=== PATIENT | female | born 1965 | race Caucasian/White ===

== ENCOUNTER 2017-12-03 22:44 | Inpatient (IN) | payer OTHER ==
[~2017-12-03] VITALS: Ht 154.9 cm; Wt 65.8 kg
--- NOTE | 2017-12-03 22:58 | ED PSYCHIATRIC COMPLAINT ---
History of Present Illness General Chief Complaint: ETOH/Drug Related Complaint Stated Complaint: PER "I THINK SHE OVERDOSING AND SI THOUGHT" Source: patient, family Exam Limitations: no limitations Vital Signs & Intake/Output Vital Signs & Intake/Output Vital Signs Date Time Temp Pulse Resp B/P B/P Pulse O2 O2 Flow FiO2 Mean Ox Delivery Rate 12/03 2304 98 Room Air 12/03 2257 96.8 64 18 110/57 98 Room Air Allergies Coded Allergies: No Known Allergies (12/03/17) Triage Nurses Notes Reviewed? yes Past History Travel History Traveled to [place] past 21 day No Medical History Cardiovascular: hyperlipidemia Psychiatric: anxiety, depression Psychosocial History What is your primary language Kenyan Tobacco Use: Never used ETOH Use: occasional use Illicit Drug Use: marijuana Review of Systems Review of Systems Constitutional: Reports: no symptoms. EENTM: Reports: no symptoms. Respiratory: Reports: no symptoms. Cardiovascular: Reports: no symptoms. GI: Reports: no symptoms. Genitourinary: Reports: no symptoms. Musculoskeletal: Reports: no symptoms. Skin: Reports: no symptoms. Neurological/Psychological: Reports: no symptoms. Hematologic/Endocrine: Reports: no symptoms. Immunologic/Allergic: Reports: no symptoms. All Other Systems: Reviewed and Negative Physical Exam Physical Exam General Appearance: well developed/nourished, mild distress Head: atraumatic Eyes: Bilateral: PERRL, EOMI. Ears, Nose, Throat: normal pharynx, normal ENT inspection, hearing grossly normal Neck: normal inspection, supple Respiratory: normal breath sounds Cardiovascular: regular rate/rhythm Gastrointestinal: soft, non-tender Extremities: normal range of motion Skin: intact, normal color, warm/dry Progress Plan of Care: Orders Procedure Date/time Status Regular Diet 12/04 B Active Continuous Observation Monitor 12/03 2256 Active URINE DRUG SCREEN FOR ER ONLY 12/03 2256 Active ETHANOL 12/03 2256 Active COMPREHENSIVE METABOLIC PANEL 12/03 2256 Active CBC WITHOUT DIFFERENTIAL 12/03 2256 Active ED CRISIS PSYCH CONSULT 12/03 2256 Active Laboratory Tests 12/03/170: Sodium Pending, Potassium Pending, Chloride Pending, Carbon Dioxide Pending, Anion Gap Pending, BUN Pending, Creatinine Pending, BUN/Creatinine Ratio Pending , Glucose Pending, Calcium Pending, Total Bilirubin Pending, AST Pending, ALT Pending, Alkaline Phosphatase Pending, Total Protein Pending, Albumin Pending, Globulin Pending, Albumin/Globulin Ratio Pending, CBC w Diff Pending, WBC Pending, RBC Pending, Hgb Pending, Hct Pending, MCV Pending, MCH Pending, MCHC Pending, RDW Pending, Plt Count Pending, MPV Pending, Serum Alcohol Pending Departure Departure Condition: Stable Referrals: Howard IQBAL,Omar Goetz (PCP/Family) Departure Forms: Customer Survey General Discharge Information
[2017-12-03 23:10] LABS: ABSOLUTE BASOPHIL COUNT 0.1 /CUMM (0.0-0.2); ABSOLUTE EOSINOPHIL COUNT 0.1 /CUMM (0.0-0.7); ABSOLUTE GRANULOCYTE CT 3.8 /CUMM (1.4-6.5); ABSOLUTE LYMPH COUNT 2.1 /CUMM (1.2-3.4); ABSOLUTE MONOCYTE COUNT 0.4 /CUMM (0.10-0.60); EOSINOPHIL % 2.1 % (0-5); GRANULOCYTE % 58.2 % (42.2-75.2); HEMATOCRIT 40.9 % (37-47); MEAN CORPUSCULAR HGB 31.3 PG (27.0-31.0); MEAN CORPUSCULAR HGB CONC 33.9 G/DL (33.0-37.0); MEAN CORPUSCULAR VOLUME 92.3 FL (81.0-99.0); MEAN PLATELET VOLUME 7.2 FL (7.4-10.4); PLATELET COUNT 323 /CUMM (130-400); RBC DISTRIBUTION WIDTH 12.2 % (11.5-14.5); RED BLOOD CELL CT 4.43 /CUMM (4.20-5.40); WHITE BLOOD CELL COUNT 6.6 /CUMM (4.8-10.8)
--- NOTE | 2017-12-03 23:10 | ED PSYCHIATRIC COMPLAINT ---
See Addendum History of Present Illness General Chief Complaint: ETOH/Drug Related Complaint Stated Complaint: PER "I THINK SHE OVERDOSING AND SI THOUGHT" Source: patient, family Exam Limitations: clinical condition, intoxication Vital Signs & Intake/Output Vital Signs & Intake/Output Vital Signs Date Time Temp Pulse Resp B/P B/P Pulse O2 O2 Flow FiO2 Mean Ox Delivery Rate 12/04 0715 94.1 85 16 103/75 100 Room Air 12/04 0645 97.8 58 16 107/58 100 Nasal Cannula 12/04 0438 97.0 52 18 123/64 100 Nasal 2.0L Cannula 12/04 0229 96.7 54 16 115/53 99 Nasal 2.0L Cannula 12/03 2305 98 Room Air 12/03 2258 96.8 64 18 110/57 98 Room Air ED Intake and Output 12/04 0000 12/03 1200 Intake Total 0 Output Total Balance 0 Intake, Oral 0 Patient 145 lb Weight Weight Reported by Patient Measurement Method Allergies Coded Allergies: No Known Allergies (12/03/17) Triage Note: PT FROM HOME C/O OVERDOSE?? PT ARRIVED TO ED WITH FROM HOME, PT IS LETHARGIC AND THE HANDED A EMPTY BOTTLE OF ALPRAZOLAM TO THE SOLDER TECHNICIAN. PER PTS +SI THOUGHTS. PTS STATES TODAY AND YESTERDAY THAT SHE TOOK 18 PILLS OF ALPRAZOLAM 0.5MG PO. PTS WORDS ARE SLURRED STATING "I DONT KNOW I LOST TRACK" PTS STATES "SHE TOOK 10 MORE ABOUT 1 HR AGO" PT IS A&0X3. PTS STATES PT HAS FOR THE PAST WEEK PT HAS FELT DEPRESSED AND PLAN IS TO TAKE MANY PILLS SHE CAN AND NOT WAKE UP. PT WANDED AND CHANGED INTO BLUE SCRUBS. PTS STATES SHE WILL TAKE HER VALUABLES HOME. Triage Nurses Notes Reviewed? yes Onset: Gradual Duration: getting worse Timing: recent history Severity: severe Severity Numbers: 10 HPI: Patient is a 52-year-old female with a past medical history of depression and anxiety hypothyroidism, hyperlipidemia who presents emergency room with for concerns of worsening depression in the past 3 days where states that she has been taking an excessive amount of her 0.5 mg of alprazolam where she is taken per day approximately 10-15 Patient states that she just "does not want to wake up anymore" Denies any previous history of suicide attempt or plan Patient currently is not being evaluated by a psychiatrist She is compliant with her sertraline and Synthroid Patient does smoke marijuana for her anxiety denies any other illicit drugs Denies any alcohol use Denies any auditory or visual hallucinations Denies any homicidal ideation Patient has 2 teenage children (Tom Holder) Past History Travel History Traveled to [place] past 21 day No Medical History Any Pertinent Medical History? see below for history Cardiovascular: hyperlipidemia Psychiatric: anxiety, depression Endocrine: hypothyroidism Surgical History Surgical History: non-contributory Psychosocial History What is your primary language French Tobacco Use: Never used ETOH Use: occasional use Illicit Drug Use: marijuana Family History Hx Contributory? No (Tom Holder) Review of Systems Review of Systems Constitutional: Reports: no symptoms. EENTM: Reports: no symptoms. Respiratory: Reports: no symptoms. Cardiovascular: Reports: no symptoms. GI: Reports: no symptoms. Genitourinary: Reports: no symptoms. Musculoskeletal: Reports: no symptoms. Skin: Reports: no symptoms. Neurological/Psychological: Reports: see HPI, depressed. Hematologic/Endocrine: Reports: no symptoms. Immunologic/Allergic: Reports: no symptoms. All Other Systems: Reviewed and Negative (Tom Holder) Physical Exam Physical Exam General Appearance: sedated, lethargic Head: atraumatic Eyes: Bilateral: normal appearance, PERRL, EOMI. Ears, Nose, Throat: normal pharynx, normal ENT inspection Neck: normal inspection Respiratory: normal breath sounds, no respiratory distress Cardiovascular: regular rate/rhythm Gastrointestinal: normal bowel sounds, non-tender Neurological/Psychiatric: awake, alert, calm, flat, oriented x 3 Appearance/Memory/Insight: denies illness, disheveled Behavoir/Eye Contact/Speech: cooperative, normal speech, good eye contact Thoughts/Hallucinations: normal thought pattern, no apparent hallucination Skin: intact, normal color SAD PERSONS SAD PERSONS Response Value Age <19 or >45 years? yes 1 Depression/Hopelessness? yes 2 Excessive Ethanol/Drug Use? yes 1 Organized/Serious Attempt yes 2 Social Support? has support 0 Stated Future Intent? yes 2 Total 8 SAD PERSONS Done? yes (Tom Holder) Progress Differential Diagnosis: drug intoxication, drug overdose, drug withdrawal, electrolyte abnormality, encephalitis, hypoglycemia, hypothyroidism, IC hem/mass /tumor, meningitis Plan of Care: Orders Procedure Date/time Status Regular Diet 12/04 B Active Admit to inpatient psych 12/04 0950 Active Add-on Test (ER Only) 12/03 2335 Active Add-on Test (ER Only) 12/03 2310 Active ACETOMINOPHEN 12/03 2299 Complete THYROID STIMULATING HORMONE 12/03 2299 Complete THYROXINE 12/03 2299 Complete SALICYLATE 12/03 2299 Complete Continuous Observation Monitor 12/03 2256 Active URINE DRUG SCREEN FOR ER ONLY 12/03 2256 Complete ETHANOL 12/03 2256 Complete COMPREHENSIVE METABOLIC PANEL 12/03 2256 Complete CBC WITHOUT DIFFERENTIAL 12/03 2256 Complete ED CRISIS PSYCH CONSULT 12/03 2256 Active Laboratory Tests 12/04/17 0138: Urine Opiates Screen < 100, Methadone Screen < 40, Barbiturate Screen < 60, Ur Phencyclidine Scrn < 6.00, Amphetamines Screen < 100, U Benzodiazepines Scrn > 800 H, Urine Cocaine Screen < 50, Urine Cannabis Screen > 80.00 H 12/03/172299: Anion Gap 12, Estimated GFR > 60, BUN/Creatinine Ratio 12.9, Glucose 113 H, Calcium 9.3, Total Bilirubin 1.1, AST 15, ALT 24, Alkaline Phosphatase 60, Total Protein 7.2, Albumin 4.0, Globulin 3.2, Albumin/Globulin Ratio 1.3, TSH 1.350, Thyroxine (T4) 9.2, CBC w Diff NO MAN DIFF REQ, RBC 4.43, MCV 92.3, MCH 31.3 H, MCHC 33.9, RDW 12.2, MPV 7.2 L, Gran % 58.2, Lymphocytes % 32.5, Monocytes % 6.2, Eosinophils % 2.1, Basophils % 1.0, Absolute Granulocytes 3.8, Absolute Lymphocytes 2.1, Absolute Monocytes 0.4, Absolute Eosinophils 0.1, Absolute Basophils 0.1, Salicylates < 1.0, Acetaminophen < 10.0 L, Serum Alcohol < 10.0 Patient's initial presentation was noted to be intoxicated most likely benzodiazepines, knit goods cutter hand placed patient was given supplemental oxygen Patient will require crisis evaluation SITTER ORDERED BLOOD Work AND UDS still pending discussed handoff with Dr. Tate Hand-Off Endorsed To: Lea IQBAL,Russ Smith Endorsed Time: 99 Pending: consult (Tom Holder) Hand-Off Endorsed To: Alex IQBAL,Grupo Juan Endorsed Time: 0700 Pending: consult (Lea IQBAL,Russ Smith) Departure Departure Disposition: STILL A PATIENT Condition: Guarded Clinical Impression Primary Impression: Depression Secondary Impressions: Suicide attempt Referrals: Howard IQBAL,Omar Goetz (PCP/Family) Departure Forms: Customer Survey General Discharge Information (Tom Holder) PA/PULP PLANT SUPERVISOR Co-Sign Statement Statement: ED Attending supervision documentation- [] I saw and evaluated the patient. I have also reviewed all the pertinent lab results and diagnostic results. I agree with the findings and the plan of care as documented in the PA's/PULP PLANT SUPERVISOR's documentation. [x] I have reviewed the ED Record and agree with the PA's/PULP PLANT SUPERVISOR's documentation. [] Additions or exceptions (if any) to the PAs/PULP PLANT SUPERVISOR's note and plan are summarized below: [] (Lea IQBAL,Russ Smith) Psych Admission Note Psychiatric Admission: I have seen and evaluated OSVALDO FLORES. I have also reviewed all the pertinent lab results and diagnostic results. OSVALDO FLORES will be admitted to our inpatient Psychiatric unit for treatment and care. (Alex IQBAL,Grupo Juan) Critical Care Note Critical Care Note Critical Care Time: 75-104 min (Tom Holder)
[2017-12-04] VITALS (10 sets, daily range): BP systolic 98–122; BP diastolic 63–88
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
--- NOTE | 2017-12-04 12:36 | CPS PROVIDER INIT ASMT PSYCH ---
Psychiatric Admission Auto Clutch Specialist's Note Reviewed: Yes Patient Seen and Examined: Yes Identifying Information: 52yoF Chief Complaint: "my life sucks" Reaction to Hospitalization: too early to assess History of Present Illness Onset of Illness: years ago Circumstances Leading to Admission: misuse of medications Problem(s) Justifying Need for Admission: worsening depression and passive SI Other HPI: Pt notes that she has been struggling with depression and anxiety for decades. She has been rx xanax which she has been using more and more up to 25 0.5mg xanax tablets daily escalating over the past week. She finds her job to be stressful. The notes that over the past few weeks has been wanting to "go to sleep and not wake up." Pt denies more active SI. Denies manic, psychotic or TRS. Past Psychiatric History Past Diagnosis(es)- if any: Major depressive disorder Panic disorder Generalized anxiety disorder Past Precipitating Factors- if any: worsening depression - Include inpatient and outpatient treatment Treatment History: Dx: Anxiety in late No hospitalizations No SA Meds by PMD, only ever taken sertraline up to 50mg and xanax Did psychotherapy for 2 years History of Suicide Attempts or Gestures Denied Substance Abuse History: Tobacco: denied Alcohol: denied Illicits: mj daily, 2 bowls, could not quantify amount Abusing her rx for xanax, may also be taking husbands rx Allergies: Coded Allergies: No Known Allergies (12/03/17) Home Med List: see H&P - Include any medical condition(s) that may - impact the patient's recovery/remission Past Medical History: See H&P Past History Medical History Cardiovascular: hyperlipidemia Psychiatric: anxiety, depression Endocrine: hypothyroidism Isolation History: Standard Surgical History Surgical History: none Psychiatric Family/Social Hx Family History Psychiatric Illness: mother with anxiety, pt thinks she is "manic depressive", uncle with psych "issues" Substance Use: denied Suicides: mother attempted suicide innumerable times Social History Living Situation: with and two children Significant Relationships (family/friends): Education: HS grad 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 - #1 Recognizing dangerous situations. - #2 Coping Skills. - #3 Basic information about quitting. Status of Tobacco Cessation Counseling: Not Applicable Cessation Med Status Not Applicable Alcohol Screening - ETOH screen POS if BAL >=80 or Audit-C>= M4/F3 Audit-C Score from Diag Assess: 0 Blood Alcohol Level: Laboratory Tests 12/03 2300 Toxicology Serum Alcohol (<10 MG/DL) < 10.0 Alcohol Use Screening Results: Neg per Audit C &/or BAL - If ETOH counseling indicated - the following topics are required. - #1 Express concern about the patient's - drinking at unhealthy levels, include informing - of national norms for moderate drinking: - men <= 14 drinks/week, max 4 drinks/occasion - women <= 7 drinks/week, max 3 drinks/occasion - #2 Providing feedback, including linking alcohol to - negative physical effects (liver injury, hypertension) - negative emotional effects (relationship problems and - depression) - negative occupational consequences (reduced work - performance) - #3 Advising the patient to abstain from alcohol or - to drink below national norms for moderate drinking - (as listed above). Status of ETOH Use Counseling: N/A B/C NO ETOH Use Metabolic Screening - Screen if on a Neuroleptic Medication - Metabolic screening should include: - Blood Pressure, BMI, Glucose or Hgb A1c, & a - Lipid profile from within the past 365 days. Metabolic Screening Laboratory Tests 12/04 12/03 0138 2300 Chemistry Sodium (137 - 145 mmol/L) 140 Potassium (3.5 - 5.1 mmol/L) 3.5 Chloride (98 - 107 mmol/L) 103 Carbon Dioxide (22 - 30 mmol/L) 25 Anion Gap (5 - 16) 12 BUN (7 - 17 mg/dL) 9 Creatinine (0.5 - 1.0 mg/dL) 0.7 Estimated GFR (>60 ml/min) > 60 BUN/Creatinine Ratio (7 - 25 %) 12.9 Glucose (65 - 99 mg/dL) 113 H Calcium (8.4 - 10.2 mg/dL) 9.3 Total Bilirubin (0.2 - 1.3 mg/dL) 1.1 AST (14 - 36 U/L) 15 ALT (9 - 52 U/L) 24 Alkaline Phosphatase (<127 U/L) 60 Total Protein (6.3 - 8.2 g/dL) 7.2 Albumin (3.5 - 5.0 g/dL) 4.0 Globulin (1.9 - 4.2 gm/dL) 3.2 Albumin/Globulin Ratio (1.1 - 2.2 %) 1.3 TSH (0.270 - 4.200 uIU/mL) 1.350 Thyroxine (T4) (4.5 - 10.9 ug/dL) 9.2 Hematology CBC w Diff NO MAN DIFF REQ WBC (4.8 - 10.8 /CUMM) 6.6 RBC (4.20 - 5.40 /CUMM) 4.43 Hgb (12.0 - 16.0 G/DL) 13.9 Hct (37 - 47 %) 40.9 MCV (81.0 - 99.0 FL) 92.3 MCH (27.0 - 31.0 PG) 31.3 H MCHC (33.0 - 37.0 G/DL) 33.9 RDW (11.5 - 14.5 %) 12.2 Plt Count (130 - 400 /CUMM) 323 MPV (7.4 - 10.4 FL) 7.2 L Gran % (42.2 - 75.2 %) 58.2 Lymphocytes % (20.5 - 51.1 %) 32.5 Monocytes % (1.7 - 9.3 %) 6.2 Eosinophils % (0 - 5 %) 2.1 Basophils % (0.0 - 2.0 %) 1.0 Absolute Granulocytes (1.4 - 6.5 /CUMM) 3.8 Absolute Lymphocytes (1.2 - 3.4 /CUMM) 2.1 Absolute Monocytes (0.10 - 0.60 /CUMM) 0.4 Absolute Eosinophils (0.0 - 0.7 /CUMM) 0.1 Absolute Basophils (0.0 - 0.2 /CUMM) 0.1 Toxicology Salicylates (0 - 20.0 mg/dL) < 1.0 Urine Opiates Screen (>2000 NG/ML) < 100 Methadone Screen (>300 NG/ML) < 40 Acetaminophen (10.0 - 30.0 ug/mL) < 10.0 L Barbiturate Screen (>200 NG/ML) < 60 Ur Phencyclidine Scrn (>25 NG/ML) < 6.00 Amphetamines Screen (>1000 NG/ML) < 100 U Benzodiazepines Scrn (>200 NG/ML) > 800 H Urine Cocaine Screen (>300 NG/ML) < 50 Urine Cannabis Screen (>50 NG/ML) > 80.00 H Serum Alcohol (<10 MG/DL) < 10.0 Exam and Plan Mental Status Examination Ambulation Status: freely Appearance: older than stated age Attitude towards examiner: cooperative but evasive and defensive Psychomotor activity: no retardation or agitation noted Behavior: cooperative Quality of speech: nl r/r/p/v Affect: irritable, constricted, appropriate, non-labile Mood: "bad" Suicidal Ideation: passive SI + denies active Homicidal Ideation: denied Hallucinations: denied Paranoid/Delusional Material: denied Difficulties with thought organization: none noted Insight: poor Judgment: poor Orientation: a/o x4 Cognition: grossly intact Memory Function: grossly intact Estimate of intellectual functioning: average Assets/Strengths Patient Identified Assets/Strengths: able to communicate family support Impression/Plan Impression and Plan: Pt with long-standing hx of anxiety and depression previously only treated with BDZ. - Include all active medical diagnosis that require tx DSM 5 Diagnosis(es): Generalized anxiety disorder MDD Sedative/hypnotic abuse - Initial Tx Plan for Active Psych & Medical Conditions Treatment Plan: - Detox from BDZ, CIWA started with standing and PRN ativan - Increase sertraline - Need collateral from PMD - Factors that would help patient function - in a less restrictive setting. Factors: substance use
[2017-12-04] MEDS ORDERED: SYNTHROID88 MCG PO (13:27)
[2017-12-04] MEDS ORDERED: SERTRALINE HCL50 MG PO (13:28)
[2017-12-04] MEDS ORDERED: ALPRAZOLAM0.5 M4 PO (13:28)
--- NOTE | 2017-12-04 14:35 | Cons- Medical ---
General Information and HPI Consulting Request Date of Consult: 12/04/17 Requested By: Russ Eric MD Reason for Consult: Medical H & P Source of Information: patient, old records Exam Limitations: no limitations History of Present Illness: 52-year-old female past medical history of hypothyroidism on Synthroid is here with depression and acute suicidal ideation. Patient is here after an intentional benzo overdose with suicidality. She denies any medical complaints. She denies nausea vomiting diarrhea, no chest pain, no shortness of breath and no other complaints. Allergies/Medications Allergies: Coded Allergies: No Known Allergies (12/03/17) Home Med List: Alprazolam 0.5 MG TABLET 1 TAB PO TIDPRN MENTAL HEALTH (Reported) Levothyroxine Sodium (Synthroid) 88 MCG TABLET 88 MCG PO DAILY HORMONE REPLACEMENT (Reported) Sertraline HCl 50 MG TABLET 1 TAB PO DAILY MENTAL HEALTH (Reported) Current Medications: Current Medications Sig/Edmund Start time Last Medication Dose Route Stop Time Status Admin Gabapentin 300 MG Q8P PRN 12/04 1030 AC PO Hydroxyzine HCl 50 MG Q6P PRN 12/04 1030 AC PO Lorazepam 0.5 MG ONCE 12/09 0000 AC PO 12/09 0001 Lorazepam 0.5 MG Q6H 12/08 0000 AC PO 12/08 1801 Lorazepam 0.5 MG ONCE ONE 12/07 1800 AC PO 12/07 1801 Lorazepam 1 MG Q6H 12/07 0000 AC PO 12/07 1201 Lorazepam 1.5 MG Q12H / 0600 AC PO 12/06 1801 Lorazepam 1 MG Q12H / 0000 AC PO 12/06 1201 Lorazepam 1.5 MG Q6 12/05 0600 AC PO 12/05 1801 Lorazepam 2 MG Q6 12/04 1200 AC PO 12/05 0001 Lorazepam 0 .STK-MED ONE 12/04 1056 DC PO Lorazepam 2 MG ONCE ONE 12/04 1030 DC 12/04 PO 12/04 1031 1109 Lorazepam 2 MG Q2P PRN 12/04 1030 AC PO Lorazepam 1 MG Q2P PRN 12/04 1030 AC PO Sertraline HCl 75 MG DAILY AC 12/05 0700 AC PO Trazodone HCl 50 MG AT BEDTIME NEED.. 12/04 1030 AC PO Review of Systems Review of Systems Constitutional: Denies: no symptoms, chills, diaphoresis, fever. Cardiovascular: Denies: no symptoms, chest pain, edema, orthopena. Respiratory: Denies: no symptoms, cough, hemoptysis, orthopnea. GI: Denies: no symptoms, abdominal pain, bloating, constipation. Genitourinary: Denies: no symptoms, discharge, dysuria, frequency. All Other Systems: Reviewed and Negative Past History Travel History Traveled to [place] past 21 day No Medical History Neurological: NONE EENT: NONE Cardiovascular: hyperlipidemia Respiratory: NONE Gastrointestinal: NONE Hepatic: NONE Renal: NONE Musculoskeletal: NONE Psychiatric: anxiety, depression Endocrine: hypothyroidism Cancer(s): NONE [employer]/Reproductive: miscarriage Surgical History Surgical History: non-contributory Psychosocial History Where Do You Live? Home Who Do You Live With? 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 She is with 2 children ages 15 and 12 and lives at home with them. She says other than her she's had no other surgeries. She is estranged from her parents and hence no family history is available. Exam & Diagnostic Data Last 24 Hrs of Vital Signs/I&O Vital Signs Date Time Temp Pulse Resp B/P B/P Pulse O2 O2 Flow FiO2 Mean Ox Delivery Rate 12/04 1224 98.0 76 117/88 12/04 1223 98.0 76 117/88 12/04 1033 82 16 112/74 99 Room Air 12/04 0715 94.1 85 16 103/75 100 Room Air 12/04 0645 97.8 58 16 107/58 100 Nasal Cannula 12/04 0438 97.0 52 18 123/64 100 Nasal 2.0L Cannula 12/04 0229 96.7 54 16 115/53 99 Nasal 2.0L Cannula 12/03 2305 98 Room Air 12/03 2258 96.8 64 18 110/57 98 Room Air Intake & Output 12/04 1600 12/04 0800 12/04 0000 Intake Total 0 Output Total Balance 0 Intake, Oral 0 Patient 65.771 kg 65.771 kg Weight Weight Reported by Patient Measurement Method Physical Exam General Appearance: well developed/nourished, no apparent distress, alert, awake Head: atraumatic, normal appearance Eyes: Bilateral: normal appearance, PERRL, EOMI. Ears, Nose, Throat: normal pharynx, normal ENT inspection, hearing grossly normal Neck: normal inspection, supple, full range of motion Respiratory: normal breath sounds, chest non-tender, no respiratory distress, quiet respiration Cardiovascular: regular rate/rhythm Gastrointestinal: normal bowel sounds, soft, non-tender, no organomegaly Back: normal inspection, normal range of motion Extremities: normal inspection, normal capillary refill, normal range of motion, no edema Neurologic/Psych: no motor/sensory deficits, awake, alert, oriented x 3, normal gait Skin: intact, normal color, warm/dry Other Physical Findings: Pt is alert and oriented 3, cranial nerves III-12 are grossly intact. Gross motor and sensory intact. Reflexes are 2+ and symmetric. No cerebellar signs and gait is normal. Last 24 Hrs of Labs/Myles: Laboratory Tests 12/04/17 0138: Urine Opiates Screen < 100, Methadone Screen < 40, Barbiturate Screen < 60, Ur Phencyclidine Scrn < 6.00, Amphetamines Screen < 100, U Benzodiazepines Scrn > 800 H, Urine Cocaine Screen < 50, Urine Cannabis Screen > 80.00 H 12/03/17 2300: Anion Gap 12, Estimated GFR > 60, BUN/Creatinine Ratio 12.9, Glucose 113 H, Calcium 9.3, Total Bilirubin 1.1, AST 15, ALT 24, Alkaline Phosphatase 60, Total Protein 7.2, Albumin 4.0, Globulin 3.2, Albumin/Globulin Ratio 1.3, TSH 1.350, Thyroxine (T4) 9.2, CBC w Diff NO MAN DIFF REQ, RBC 4.43, MCV 92.3, MCH 31.3 H, MCHC 33.9, RDW 12.2, MPV 7.2 L, Gran % 58.2, Lymphocytes % 32.5, Monocytes % 6.2, Eosinophils % 2.1, Basophils % 1.0, Absolute Granulocytes 3.8, Absolute Lymphocytes 2.1, Absolute Monocytes 0.4, Absolute Eosinophils 0.1, Absolute Basophils 0.1, Salicylates < 1.0, Acetaminophen < 10.0 L, Serum Alcohol < 10.0 Assessment/Plan Assessment/Plan 52-year-old female past medical history of hypothyroidism on Synthroid replacement therapy here with depression and suicidal ideation status post intentional overdose with benzos. Treatment of depressive symptoms as per psychiatry. We'll start patient's usual dose of levothyroxine at 88 g a day, given normal TSH. Counseled about marijuana cessation. She'll need outpatient follow-up with her PCP Dr. Lawrence on discharge. Problem List: 1. Depression 2. Suicide attempt Copies To: Omar Lawrence MD Consult Acknowledgment - Thank you for your consult request.
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
[2017-12-05] VITALS (9 sets, daily range): BP systolic 111–141; BP diastolic 53–94
--- NOTE | 2017-12-05 10:20 | CP SOUTH PROGRESS NOTE PSYCH ---
Psych (Inpt) Progress Note Progress Note Include the following elements, when applicable: Involvement in the active treatment of the patient with behavioral observations of the patient and the patient's response to the treatment. Review of the ongoing treatment process in the context of the treatment plan. Indication of how multi-disciplinary staff members are carrying out the treatment plan. Plans for future interventions and recommendations for revision of the treatment plan. Liaison with other physicians/providers. Progress Note: Pt notes that she "has been better." She notes continued sadness and depression. She has decided not to have her children visit nor will she call them. She was very tearful around this. She revealed the very difficult relationship with her . She notes she would have left him long ago but is not fiancially secure and she "is in it for the kids." She feels that he is "family" and more supportive than her biological family currently but is usually distant and not supportive. Very difficult interpersonal relationship. Denies SI or HI. Current Medications Sig/Edmund Start time Last Medication Dose Route Stop Time Status Admin Gabapentin 300 MG Q8P PRN 12/04 1030 AC PO Hydroxyzine HCl 50 MG Q6P PRN 12/04 1030 AC PO Levothyroxine Sodium 0.088 MG DAILY AC 12/04 1618 AC 12/05 PO 0713 Lorazepam 0.5 MG ONCE 12/09 0000 AC PO 12/09 0001 Lorazepam 0.5 MG Q6H 12/08 0000 AC PO 12/08 1801 Lorazepam 0.5 MG ONCE ONE 12/07 1800 AC PO 12/07 1801 Lorazepam 1 MG Q6H 12/07 0000 AC PO 12/07 1201 Lorazepam 1.5 MG Q12H 12/06 0600 AC PO 12/06 1801 Lorazepam 1 MG Q12H 12/06 0000 AC PO 12/06 1201 Lorazepam 1.5 MG Q6 12/05 0600 AC 12/05 PO 12/05 1801 0605 Lorazepam 2 MG Q6 12/04 1200 DC 12/04 PO 12/05 0001 1736 Lorazepam 0 .STK-MED ONE 12/04 1056 DC PO Lorazepam 2 MG ONCE ONE 12/04 1030 DC 12/04 PO 12/04 1031 1109 Lorazepam 2 MG Q2P PRN 12/04 1030 AC PO Lorazepam 1 MG Q2P PRN 12/04 1030 AC PO Sertraline HCl 75 MG DAILY AC 12/05 0700 AC 12/05 PO 0714 Trazodone HCl 50 MG AT BEDTIME NEED.. 12/04 1030 AC PO Laboratory Tests 12/04 12/03 0138 2300 Chemistry Sodium (137 - 145 mmol/L) 140 Potassium (3.5 - 5.1 mmol/L) 3.5 Chloride (98 - 107 mmol/L) 103 Carbon Dioxide (22 - 30 mmol/L) 25 Anion Gap (5 - 16) 12 BUN (7 - 17 mg/dL) 9 Creatinine (0.5 - 1.0 mg/dL) 0.7 Estimated GFR (>60 ml/min) > 60 BUN/Creatinine Ratio (7 - 25 %) 12.9 Glucose (65 - 99 mg/dL) 113 H Calcium (8.4 - 10.2 mg/dL) 9.3 Total Bilirubin (0.2 - 1.3 mg/dL) 1.1 AST (14 - 36 U/L) 15 ALT (9 - 52 U/L) 24 Alkaline Phosphatase (<127 U/L) 60 Total Protein (6.3 - 8.2 g/dL) 7.2 Albumin (3.5 - 5.0 g/dL) 4.0 Globulin (1.9 - 4.2 gm/dL) 3.2 Albumin/Globulin Ratio (1.1 - 2.2 %) 1.3 TSH (0.270 - 4.200 uIU/mL) 1.350 Thyroxine (T4) (4.5 - 10.9 ug/dL) 9.2 Hematology CBC w Diff NO MAN DIFF REQ WBC (4.8 - 10.8 /CUMM) 6.6 RBC (4.20 - 5.40 /CUMM) 4.43 Hgb (12.0 - 16.0 G/DL) 13.9 Hct (37 - 47 %) 40.9 MCV (81.0 - 99.0 FL) 92.3 MCH (27.0 - 31.0 PG) 31.3 H MCHC (33.0 - 37.0 G/DL) 33.9 RDW (11.5 - 14.5 %) 12.2 Plt Count (130 - 400 /CUMM) 323 MPV (7.4 - 10.4 FL) 7.2 L Gran % (42.2 - 75.2 %) 58.2 Lymphocytes % (20.5 - 51.1 %) 32.5 Monocytes % (1.7 - 9.3 %) 6.2 Eosinophils % (0 - 5 %) 2.1 Basophils % (0.0 - 2.0 %) 1.0 Absolute Granulocytes (1.4 - 6.5 /CUMM) 3.8 Absolute Lymphocytes (1.2 - 3.4 /CUMM) 2.1 Absolute Monocytes (0.10 - 0.60 /CUMM) 0.4 Absolute Eosinophils (0.0 - 0.7 /CUMM) 0.1 Absolute Basophils (0.0 - 0.2 /CUMM) 0.1 Toxicology Salicylates (0 - 20.0 mg/dL) < 1.0 Urine Opiates Screen (>2000 NG/ML) < 100 Methadone Screen (>300 NG/ML) < 40 Acetaminophen (10.0 - 30.0 ug/mL) < 10.0 L Barbiturate Screen (>200 NG/ML) < 60 Ur Phencyclidine Scrn (>25 NG/ML) < 6.00 Amphetamines Screen (>1000 NG/ML) < 100 U Benzodiazepines Scrn (>200 NG/ML) > 800 H Urine Cocaine Screen (>300 NG/ML) < 50 Urine Cannabis Screen (>50 NG/ML) > 80.00 H Serum Alcohol (<10 MG/DL) < 10.0 Vital Signs Date Time Temp Pulse Resp B/P B/P Pulse O2 O2 Flow FiO2 Mean Ox Delivery Rate 12/05 821 96.4 64 127/85 12/05 0820 96.4 64 127/85 12/05 0610 67 123/66 12/04 2350 72 98/73 12/04 2224 71 108/81 12/05 1999 97.7 73 119/77 12/04 1949 97.7 73 119/77 12/04 1814 75 114/74 12/04 1609 70 122/76 12/04 1554 70 122/76 12/04 1453 75 120/63 12/04 1224 98.0 76 117/88 12/04 1223 98.0 76 117/88 12/04 1033 82 16 112/74 99 Room Air MSE General appearance: fair hygiene and grooming; Attitude: cooperative; Eye contact: appropriate; Movement: no psychomotor agitation or slowing; Speech: nl fluency, nl rate/rhythm, nl volume, nl prosody; Mood: "been better" Affect: irritable, flat, appropriate, constricted, non-labile, congruent; Thought process: linear and goal-directed; Thought content: denied SI or HI, no paranoid ideation; Perception: denied hallucinations- auditory, visual, does not appear to be responding to internal stimuli; I/J: limited A/P: Pt with long-standing hx of anxiety and depression previously only treated with BDZ. - Continue current medications - Tolerating detox without difficulty - Encourage groups
[2017-12-06] VITALS (11 sets, daily range): BP systolic 107–129; BP diastolic 65–93
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
--- NOTE | 2017-12-06 16:12 | CP SOUTH PROGRESS NOTE PSYCH ---
Psych (Inpt) Progress Note Progress Note Include the following elements, when applicable: Involvement in the active treatment of the patient with behavioral observations of the patient and the patient's response to the treatment. Review of the ongoing treatment process in the context of the treatment plan. Indication of how multi-disciplinary staff members are carrying out the treatment plan. Plans for future interventions and recommendations for revision of the treatment plan. Liaison with other physicians/providers. Progress Note: Dr. Johnson's notes reviewed. Case discussed with nursing staff, who reports that the patient is here for depression and suicidal ideation. The patient overdosed with Xanax prior to admission. Appearing depressed and withdrawn. Denying suicidal ideation. Stays in bed a lot. We will reduce CIWA to every 4 hours. The patient is a 52-year-old white female who was admitted on 12/04/17. The patient apparently took successively greater doses of Xanax over the course of last week with suicidal intent. She reported job stress. Apparently there is some marital stress as well. Past psychiatric history: Was followed as an outpatient by Jody starting in 2011 when the patient began menopause and experienced high anxiety, felt disoriented, was not focused, could not get out of bed, was afraid to get out of bed, and hid under the covers. She went to her IMPREGNATING HELPER who started the patient on a patch and then the patient began to see [facility]. Patient last saw this therapist about 18 months ago. No history of inpatient treatment. No prior suicide attempts. Substance abuse history: Tobacco: None. Alcohol: None. Patient uses marijuana by eating it. Reports she tried cocaine in the past. No opiates. Medications prior to admission: Zoloft 50 mg nightly. Synthroid 88 mcg daily. Xanax 0.[address] Lawrence. States she takes it at bedtime with marijuana. Denies being on a statin or other medication for cholesterol. Allergies: No known allergies. Past medical history: Status post Xanax overdose Hypothyroidism. Lipids vary with her weight. Family psychiatric and substance use history: Mother has manic depression. Father is an alcoholic in recovery. Suicides: Patient reports mother attempted many times. Social history: Parents when the patient was 17 years old. Patient reports she is estranged from her parents and has minimal contact with her brother. Patient lives with her of 19 years and their 2 daughters, ages 15 and 12, in [place]. Patient grew up in [place]. Patient completed high school and attended some college. 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 No history of arrests. Mental status examination: Patient seen at 1:30 PM. She is an ambulatory white female sitting in a chair in no acute distress. She is calm, polite and cooperative. There is no psychomotor agitation or retardation. Speech is normal in volume, rate and tone. Affect is blunted to depressed. Patient reports that she took an overdose slowly, beginning last Wednesday and culminating in her taking 18-20 Xanax pills on Wednesday. She took successively more because she thought it would be painless that way. She thought that if she at work, that would be best. She hates her work and finds it to be awful. 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 She liked her the predecessor company that was acquired. She kept her tenure. Her pevious position was more diversified. Reports her skills in her current position are going downhill. Claims that her coworkers do not like her and do not talk to her. Reports that her boss wrote her up last year. I asked how she feels about having survived the overdose, and she responded that she wants to survive. Reports mood is just tired. Rates sad mood 8/10 and anxiety 1/10. Feels hopeless and worthless. Feels guilty about sexual indiscretions, including casual hookups with strangers she met over the Internet. Claims that she practices safer sex. Denies feeling helpless. Denies suicidal and homicidal ideation. Denies auditory and visual hallucinations. Denies paranoid ideation and magical villalta. Thinking is a little slowed. There is no other apparent thought disorder or delusions. The patient is oriented 3. Cognition is grossly intact. Estimate of intellectual functioning is average to slightly below average. Reports she had a little trouble sleeping last night because she slept most of the daytime. States she sleeps well at home when she takes Xanax and cannabis. Reports appetite is back but it was down for about a week, but she has also been trying to lose weight. Reports she lost about 20 pounds over 8 months. States right now she does not have any energy. Denies mood lability. Denies hypergraphia. Denies hyper-religiosity. States she is a shopaholic and might spend $200 a day. She does not know the financial situation of the family , as her manages the finances. IMPRESSION: Major depression Rule out bipolar disorder Rule out Xanax abuse Zoloft dose has been increased to 75 mg daily. Patient remains on levothyroxine. Trazodone, gabapentin and hydroxyzine are available as needed. Patient is on a taper down of lorazepam and prn Lorazepam is also available. A family meeting will likely prove useful. Anticipate once clinically stable, that the patient be discharged to home and family and be referred to an IOP.
[2017-12-07] VITALS (9 sets, daily range): BP systolic 100–109; BP diastolic 60–73
--- NOTE | 2017-12-07 15:32 | SOCIAL WORKER PROG NOTE PSYCH ---
Social Work Progress Note Progress Note Tayla's came in for a family meeting. He appears commited to working on their marriage and doing anything he can to help Tayla. Tayla appeared ambivalent and told her that he is family, but she is not in love with him. She talked about how he doesn't pay attention to her. He admitted that he was a little self absorbed and not in tune with what was going on with her. He is willing to go to marriage therapy, but she didn't seem commited to that right now. They talked about the goal of moving to [place]. Mr. Narvaez was very much on board with that idea. He just needs to secure a job out that way. He did tell her that he was worried about between now and securing a place in [place]. We talked about IOP being a good transition from the inpatient unit back to home. Asked if she was willing to stop using marijuana? She said she was, but does need something to help with sleep. Talked about needing to fill out [place] paperwork for her to be off from work for sometime. This will also lessen her stress. Discussed discharge tentatively for Wednesday.
--- NOTE | 2017-12-07 17:17 | CP SOUTH PROGRESS NOTE PSYCH ---
Psych (Inpt) Progress Note Progress Note Include the following elements, when applicable: Involvement in the active treatment of the patient with behavioral observations of the patient and the patient's response to the treatment. Review of the ongoing treatment process in the context of the treatment plan. Indication of how multi-disciplinary staff members are carrying out the treatment plan. Plans for future interventions and recommendations for revision of the treatment plan. Liaison with other physicians/providers. Progress Note:
--- NOTE | 2017-12-07 17:30 | CP SOUTH PROGRESS NOTE PSYCH ---
Psych (Inpt) Progress Note Progress Note Include the following elements, when applicable: Involvement in the active treatment of the patient with behavioral observations of the patient and the patient's response to the treatment. Review of the ongoing treatment process in the context of the treatment plan. Indication of how multi-disciplinary staff members are carrying out the treatment plan. Plans for future interventions and recommendations for revision of the treatment plan. Liaison with other physicians/providers. Progress Note: Case and treatment plan discussed in team meeting. Staff reports that the patient is denying suicidal ideation. Slept-in yesterday morning. Went to some groups. Did not sleep-in this morning. Couple's meeting was scheduled for 2:30 p.m. Patient seen at 4:28 PM. Affect is brighter. Feels good/tired. Reports her sleep pattern is off. Less groggy/appears to have more energy. Patient reports she and plan to move the family to [place]. They have friends there. Patient has never visited there. She reports there is a better quality of life in [place]. Affect is calm and euthymic. Rates sad mood 3/10 and anxiety 0/10. Denies feeling hopeless. Feels a tad helpless because here. Denies feeling worthless. Endorses some guilt. Denies active and passive suicidal ideation. Denies homicidal ideation. Denies auditory and visual hallucinations and paranoid ideation. Reports sleep is not good. She agrees to addition of standing trazodone 50 mg at bedtime to the 50 mg prn dose. Reports appetite is back. Energy is good. Tolerating medications well, without complaint. We discussed possible addition of lithium for its anti-suicidal properties, but the patient feels that she will be safe. IMPRESSION: Slow progress. Continue present treatment plan. Patient apparently had a successful couple's meeting. Anticipate discharge on Wednesday with referral to [facility] [place] and return home.
[2017-12-08] VITALS (8 sets, daily range): BP systolic 99–135; BP diastolic 65–76
--- NOTE | 2017-12-08 16:44 | CP SOUTH PROGRESS NOTE PSYCH ---
Psych (Inpt) Progress Note Progress Note Include the following elements, when applicable: Involvement in the active treatment of the patient with behavioral observations of the patient and the patient's response to the treatment. Review of the ongoing treatment process in the context of the treatment plan. Indication of how multi-disciplinary staff members are carrying out the treatment plan. Plans for future interventions and recommendations for revision of the treatment plan. Liaison with other physicians/providers. Progress Note: Case and treatment plan discussed in team meeting. Staff reports that the patient is denying suicidal ideation. Doing well. Patient seen at 10:49 AM. Patient was in group prior to meeting with me in office. Feels good but tired. Affect is calm and euthymic. Appears awake and alert. States it took a while for her to fall asleep, probably one hour. We agreed to change standing trazodone dosing time to 9 PM. Describes mood as "I'm just tired." Rates sad mood probably 5/10 and anxiety 0/10. Denies feeling hopeless, helpless, worthless or guilty. She believes she will feel guilty later, when she gets back home and realizes what she did was "selfish and stupid." Denies active and passive suicidal ideation. Denies homicidal ideation. Denies auditory and visual hallucinations and paranoid ideation. Reports appetite was really strong yesterday and she wants to limit her intake. Energy is kind of low, stating that she is just tired. Tolerating medications well, without complaint. IMPRESSION: Slow progress. Continue present treatment plan. The patient is here after a serious suicide attempt by overdose. Anticipate discharge on Wednesday to home and family with referral to [facility].
--- NOTE | 2017-12-08 16:49 | SOCIAL WORKER PROG NOTE PSYCH ---
Social Work Progress Note Progress Note Spoke with Mr. Narvaez today. He had HR fax paperwork for [facility] over to [employer]. We decided that she can follow up on this while in IOP. I informed him that she is scheduled for intake at 1:15 on Wednesday. Tayla was given the information on the [facility] paperwork. She was happy with the meeting with her yesterday and feels he is starting to get what is going on. She feels he is being supportive. She seemed open to the possibility of something changing between her and her today. She was overall feeling more hopeful. She talked about wanting to change things at home with her 2 girls as well. Said she wants to have more time in the family for communication and for there to be a set time for them all to get together and talk. She stated she needs to take back control as a parent. Talked about her IOP intake for Wednesday. She will speak with her alejandra to discuss whether or not he will go with her to her intake. Seems goal/ future oriented. Said she never wants this type of incident to happen again. Wished her well. Informed her that she will be seeing another social science analyst tomorrow during my absence.
[2017-12-09] VITALS (8 sets, daily range): BP systolic 106–118; BP diastolic 69–93
--- NOTE | 2017-12-09 11:03 | SOCIAL WORKER PROG NOTE PSYCH ---
Social Work Progress Note Progress Note Pt is feeling groggy, reporting poor sleep, her affect is mild, flat and she offers she has been enjoying the groups she feels listened too, which she has previously not felt in her personal life. Left clinical to Pamela requesting today be covered so she can discharge directly from the hospital and walk to [facility] from here. Pt feels guilty, but denies suicidal thoughts. Her depression has decreased from admission, and IOP will offer a continuation of exploring her identity in her personal, and work life. She is eager to return home, a visit from her went well "we played cards". Pt has been tapered from xanax/ ativan last night.
--- NOTE | 2017-12-09 15:11 | CP SOUTH PROGRESS NOTE PSYCH ---
Psych (Inpt) Progress Note Progress Note Include the following elements, when applicable: Involvement in the active treatment of the patient with behavioral observations of the patient and the patient's response to the treatment. Review of the ongoing treatment process in the context of the treatment plan. Indication of how multi-disciplinary staff members are carrying out the treatment plan. Plans for future interventions and recommendations for revision of the treatment plan. Liaison with other physicians/providers. Progress Note: Case and treatment plan discussed in team meeting. Staff reports that the patient is doing much better. More social and brighter in affect. Had a good visit with her . Has intake scheduled for 1:15 PM tomorrow at [facility]. Patient seen at 10:31 AM. She was resting in bed but got up to meet with me and ION Jansen, in office. States she did not get much sleep last night. Affect is calm and euthymic. Reports that her mind is a little clearer off of Xanax. Reports that peers here and her are listening to her. Patient views suicide as selfish. Reports mood is tired. Rates sad mood probably 2/10 and anxiety 0/10. Denies feeling hopeless or helpless. Feels worthless and guilty a little. Denies active and passive suicidal ideation. Denies homicidal ideation. Denies auditory and visual hallucinations and paranoid ideation. Reports sleep was terrible despite trazodone 100 mg. Describes appetite as "it' s there." Describes energy as sluggish because she is tired. Tolerating medications well. IMPRESSION: Slow progress. Continue present treatment plan. Anticipate likely discharge tomorrow to [facility] intake at 1:15 PM with subsequent return to home and family.
[2017-12-10 05:54] VITALS: BP 131/88
[2017-12-10 07:51] VITALS: BP 112/75
[2017-12-10] MEDS ORDERED: TRAZODONE HCL50 M1 PO (10:34)
[2017-12-10] MEDS ORDERED: SERTRALINE HCL25 MG PO (10:34)
--- NOTE | 2017-12-10 10:40 | Patient Discharge Instructions ---
Psych Discharge Inst General Discharge Information Reason for Admission: Overdosed with Xanax. Stress. Psy Discharge Primary Diag+ Major depr single severe Psy Discharge Secondary Diag+ S/p Xanax overdose Hypothyroidism Hx hyperlipidemia Summary Tests/Major Procedures Lab ALT 24 U/L 12/03/17 2300 AST 15 U/L 12/03/17 2300 Anion Gap 12 12/03/17 2300 BUN 9 mg/dL 12/03/17 2300 Calcium 9.3 mg/dL 12/03/17 2300 Carbon Dioxide 25 mmol/L 12/03/17 2300 Chloride 103 mmol/L 12/03/17 2300 Creatinine 0.7 mg/dL 12/03/17 2300 Estimated GFR > 60 ml/min 12/03/17 2300 Glucose 113 mg/dL H 12/03/17 2300 Potassium 3.5 mmol/L 12/03/17 2300 Sodium 140 mmol/L 12/03/17 2300 TSH 1.350 uIU/mL 12/03/17 2300 Thyroxine (T4) 9.2 ug/dL 12/03/17 2300 Hct 40.9 % 12/03/17 2300 Hgb 13.9 G/DL 12/03/17 2300 MCH 31.3 PG H 12/03/17 2300 MPV 7.2 FL L 12/03/17 2300 Plt Count 323 /CUMM 12/03/17 2300 WBC 6.6 /CUMM 12/03/17 2300 Acetaminophen < 10.0 ug/mL L 12/03/17 2300 Serum Alcohol < 10.0 MG/DL 12/03/17 2300 U Benzodiazepines Scrn > 800 NG/ML H 12/04/17 0138 Urine Cannabis Screen > 80.00 NG/ML H 12/04/17 0138 EKG 12/04/17 showed sinus rhythm @ 58, probable anteroseptal infarct, age indeterm, no previous tracing, abnormal EKG. QT 416. QTc 409. Studies Pending at PR: None. Patient Instructions Contact Information Your Psychiatrist on [facility] was Hernesto IQBAL,Russ * If you are experiencing an emergency related to this hospitalization, please call [phone] to contact the treating psychiatrist or the psychiatrist-on- call. * To Request a copy of your medical records, please contact the Medical Records Department at [phone]. * To request results of studies pending at the time of discharge, please call [phone]. * Continue your Medications until directed to stop by your Healthcare provider. General Medication Information Please continue to take your new medications and your continued home medications , unless otherwise indicated on your discharge medication list, or unless directed by your MD or CHECK PROCESSING CLERK to stop them. Special Instructions Diet Regular Activity Normal Other Inst/Recommendations Please see PCP about abnormal labs/EKG. Stay away from drugs/alc. - Tobacco Use Treatment Offered Post DC Medications Offered: Not Applicable Post DC Tobacco Treatment Plan: Not Applicable - EtOH/Drug Use D/O Treatment Offered Post DC Medications Offered: Med Not Indicated for D/O Post DC EtOH/SubAbuse [place] Plan: [facility] SubAbuse/Dual IOP Program Appt Date: 12/10/17 Program Appt Time: 1315 Metabolic Screening ([x]) Not Applicable, patient not on a neuroleptic. OR () Patient on a neuroleptic(s) . Enter below results for Hemoglobin A1C, and lipid panel if obtained during the last 365 days. BMI: 27.400 Blood Pressure: 112/75 Laboratory Results From [facility] EHR (If applicable): Advance Directives Does the Patient have Medical Advance Directives No/Refused further info Does Pt have Psychiatric Advance Directives? No/Refused further info Does Patient have a Designated Surrogate Decision Maker: No Information About Psychiatric Advance Directives Provided? Refused Discharge Plan Post Hospital Treatment Plan: Returning to home and family. IOP 12/10/17 at 13:15.
--- NOTE | 2017-12-10 10:47 | IP INCIDENTAL NOTE PSYCH ---
Incidental Note Notation: Case d/w Dr. Lawrence, including Xanax OD, that patient is now off of Xanax, and EKG abnormality that needs follow-up.
--- NOTE | 2017-12-10 10:50 | SOCIAL WORKER PROG NOTE PSYCH ---
Social Work Progress Note Progress Note states he doesn't take the xanax often and will throw what he has left, otherwise he staes he will lock it up and Tayla will not have access. Pt has an appointment with [facility] today 12/10/17 at 1:15 her will be accompanying her. Pt denies si/hi/ah/vh, she is eager for discharging today, pt aware that she can return to ER if symtpoms of depression return and/or worsen. Pt was in good spirits this morning, and agreed to attend IOP intake. Faxed Referral(s) Referred To: [facility] Transition of Care Documents sent: DC Instructions, Health Summary Faxed to: [facility] Fax #: [phone] Faxed by: Justyna Haddad Date faxed: 12/10/17 Time Faxed: [phone]
[2017-12-10 12:39] VITALS: BP 136/85
[2017-12-10 12:40] VITALS: BP 136/85
--- NOTE | 2017-12-10 13:53 | SOCIAL WORKER PROG NOTE PSYCH ---
Social Work Progress Note Progress Note Auth #[id number] Approved until 12/10/17 I left discharge clincial awaiting IOP auth on Wednesday. Call Emilee [phone] ext [phone]
--- NOTE | 2017-12-10 14:33 | CP SOUTH PROGRESS NOTE PSYCH ---
Psych (Inpt) Progress Note Progress Note Include the following elements, when applicable: Involvement in the active treatment of the patient with behavioral observations of the patient and the patient's response to the treatment. Review of the ongoing treatment process in the context of the treatment plan. Indication of how multi-disciplinary staff members are carrying out the treatment plan. Plans for future interventions and recommendations for revision of the treatment plan. Liaison with other physicians/providers. Progress Note: Case and treatment plan discussed in team meeting. Staff reports that the patient is denying suicidal ideation. Looks ready to go. Stated that her heart was opened by her . Has IOP intake at 1:15 PM today. Patient seen at 10:24 AM. She was in group prior to meeting with me. Affect is upbeat. Eager for discharge. Reports she wants to feel her kids in her arms. Mood is excited, very. Rates sad mood and anxiety both 0/10. Denies feeling hopeless, helpless or worthless. Feels guilty about the overdose. Denies active and passive suicidal ideation. Denies homicidal ideation. Denies auditory and visual hallucinations and paranoid ideation. Reports sleep was not great but she got a little more last night. Appetite is fine. Reports energy is a lot but denies feeling manic, stating she is just excited. Does not appear manic. Tolerating medications well, without complaint. Feels ready and safe for discharge. IMPRESSION: Condition improved. Okay for discharge today to IOP intake at 1:15 pm then to return to home and family.
--- NOTE | 2017-12-10 14:38 | DISCHARGE SUMMARY REPORT-PSYCH ---
Visit Information Visit Dates/Diagnosis' Admission Date: 12/04/17 Discharge Date: 12/10/17 Reason for Admission: Overdosed with Xanax. Stress. Psy Discharge Primary Diag: Major depr single severe Psy Discharge Secondary Diag: Cannabis use d/o S/p Xanax overdose Hypothyroidism Hx hyperlipidemia Hospital Course Significant Lab Findings: Lab ALT 24 U/L 12/03/17 2300 AST 15 U/L 12/03/17 2300 Anion Gap 12 12/03/17 2300 BUN 9 mg/dL 12/03/17 2300 Calcium 9.3 mg/dL 12/03/17 2300 Carbon Dioxide 25 mmol/L 12/03/17 2300 Chloride 103 mmol/L 12/03/17 2300 Creatinine 0.7 mg/dL 12/03/17 2300 Estimated GFR > 60 ml/min 12/03/17 2300 Glucose 113 mg/dL H 12/03/17 2300 Potassium 3.5 mmol/L 12/03/17 2300 Sodium 140 mmol/L 12/03/17 2300 TSH 1.350 uIU/mL 12/03/17 2300 Thyroxine (T4) 9.2 ug/dL 12/03/17 2300 Hct 40.9 % 12/03/17 2300 Hgb 13.9 G/DL 12/03/17 2300 MCH 31.3 PG H 12/03/17 2300 MPV 7.2 FL L 12/03/17 2300 Plt Count 323 /CUMM 12/03/17 2300 WBC 6.6 /CUMM 12/03/17 2300 Acetaminophen < 10.0 ug/mL L 12/03/17 2300 Serum Alcohol < 10.0 MG/DL 12/03/17 2300 U Benzodiazepines Scrn > 800 NG/ML H 12/04/178 Urine Cannabis Screen > 80.00 NG/ML H 12/04/17137 EKG 12/04/17 showed sinus rhythm @ 58, probable anteroseptal infarct, age indeterm, no previous tracing, abnormal EKG. QT 416. QTc 409. Course Complications: None. Consultations: The patient was seen for admission H&P by Dr. Martha Stephenson, who noted: "Assessment/Plan 52-year-old female past medical history of hypothyroidism on Synthroid replacement therapy here with depression and suicidal ideation status post intentional overdose with benzos. Treatment of depressive symptoms as per psychiatry. We'll start patient's usual dose of levothyroxine at 88 g a day, given normal TSH. Counseled about marijuana cessation. She'll need outpatient follow-up with her PCP Dr. Lawrence on discharge." Allergies: Coded Allergies: No Known Allergies (12/03/17) Hospital Course/TX Response: The patient was monitored on the unit for safety, benzodiazepine withdrawal and mood disorder. She participated in multi-modal treatments on the unit. An Ativan taper was used to detox the patient from Xanax. This was uneventful. Zoloft dose was increased from 50 mg daily to 75 mg daily. Mood and affect improved. Suicidal ideation has remitted. The patient should be monitored for the possibility of bipolar disorder and medications should be adjusted accordingly. Progress note from date of discharge, 12/10/17: Case and treatment plan discussed in team meeting. Staff reports that the patient is denying suicidal ideation. Looks ready to go. Stated that her heart was opened by her . Has IOP intake at 1:15 PM today. Patient seen at 10:24 AM. She was in group prior to meeting with me. Affect is upbeat. Eager for discharge. Reports she wants to feel her kids in her arms. Mood is excited, very. Rates sad mood and anxiety both 0/10. Denies feeling hopeless, helpless or worthless. Feels guilty about the overdose. Denies active and passive suicidal ideation. Denies homicidal ideation. Denies auditory and visual hallucinations and paranoid ideation. Reports sleep was not great but she got a little more last night. Appetite is fine. Reports energy is a lot but denies feeling manic, stating she is just excited. Does not appear manic. Tolerating medications well, without complaint. Feels ready and safe for discharge. IMPRESSION: Condition improved. Okay for discharge today to IOP intake at 1:15 pm then to return to home and family. Discharge HBIPS - Tobacco Use Treatment Offered Post DC Medications Offered: Not Applicable Post DC Tobacco Treatment Plan: Not Applicable - EtOH/Drug Use D/O Treatment Offered Post DC Medications Offered: Med Not Indicated for D/O Post DC EtOH/SubAbuse TX Plan: [facility] SubAbuse/Dual IOP Program Appt Date: 12/10/17 Program Appt Time: 1315 Metabolic Screening - Screen if on a Neuroleptic Medication - Metabolic screening should include: - Blood Pressure, BMI, Glucose or Hgb A1c, & a - Lipid profile from within the past 365 days. Metabolic Screening ([x]) Not Applicable, patient not on a neuroleptic. OR () Patient on a neuroleptic(s) . Enter below results for Hemoglobin A1C, and lipid panel if obtained during the last 365 days. BMI: 27.400 Blood Pressure: 136/85 Laboratory Results From [facility] EHR (If applicable): Discharge Instructions General Discharge Information Multiple Neuroleptics: ([x]) Not Applicable OR Document below three failed attempts at monotherapy, or a plan to taper to monotherapy, or augmentation of Clozapine. () Discharge Diet Regular Discharge Activity Normal DC Disposition: Returning to home and family. Referrals Ordered Referrals Provider Referral 12/10/17 For Groups: [ IOP] Pt has an IOP intake for 1:15pm at IOP [address] Prescriptions Stop taking the following medications: Alprazolam (Alprazolam) 0.5 MG TABLET ORAL THREE TIMES A DAY NEEDED Sertraline HCl (Sertraline HCl) 50 MG TABLET ORAL DAILY Continue taking these medications: Levothyroxine Sodium (Synthroid) 88 MCG TABLET 88 Microgram ORAL DAILY Comments: Last Taken:12/10/17 Time:6am Start taking the following new medications: Sertraline HCl (Sertraline HCl) 25 MG TABLET 3 Tablet ORAL DAILY @8 AM Qty = 42 No Refills Comments: Last Taken:12/10/17 Time:8am Trazodone HCl (Trazodone HCl) 50 MG TABLET 1 Tablet ORAL DAILY Qty = 14 No Refills Comments: Last Taken:12/09/17 Time:10pm Other Inst/Recommendations Please see PCP about abnormal labs/EKG. Stay away from drugs/alc. Studies Pending at Discharge None. Copies To: Howard IQBAL,Omar Goetz; Intensive Outpt Psychiatry
== END 2017-12-10 13:11 | DRG 881 ==
LOC: ERH 22:44 → CP SOUTH 12-04 09:50 → ERHI 12-04 09:50 → ENTRNSPT 12-04 11:49 → EDTRNSPTSTS 12-04 11:55 → EDTRNSPT 12-04 11:55 → CP SOUTH 12-04 12:16 → EDTRNSPT 12-04 12:21 → CMPTRNSPT 12-04 12:22 → CP SOUTH 12-06 16:43 → ENRESERV 12-06 23:59 → CP SOUTH 12-10 13:11
PROVIDERS: Pediatrics
DX: F32.9 Major depressive disorder, single episode, unspecified (principal); E03.9 Hypothyroidism, unspecified; E78.5 Hyperlipidemia, unspecified; T42.4X1A Poisoning by benzodiazepines, accidental (unintentional), initial encounter; F12.10 Cannabis abuse, uncomplicated
CPT/HCPCS: 80307; 93005; 93010; G0480

== ENCOUNTER 2017-12-14 14:28 | Emergency (ER) | payer OTHER ==
[~2017-12-14] VITALS: Ht 154.9 cm; Wt 64.4 kg
[~2017-12-14 14:28] MED LIST: ALPRAZOLAM0.5 M4 PO; SERTRALINE HCL25 MG PO; SERTRALINE HCL50 MG PO; SYNTHROID88 MCG PO; TRAZODONE HCL50 M1 PO
--- NOTE | 2017-12-14 15:18 | ED PSYCHIATRIC COMPLAINT ---
History of Present Illness General Chief Complaint: Psychiatric Related Complaint Stated Complaint: ANXIETY ATTACK Source: patient, old records Exam Limitations: no limitations Vital Signs & Intake/Output Vital Signs & Intake/Output Vital Signs Date Time Temp Pulse Resp B/P B/P Pulse O2 O2 Flow FiO2 Mean Ox Delivery Rate 12/14 1725 98.2 129 18 144/93 93 Room Air 12/14 1507 97.9 97 18 98 Room Air Allergies Coded Allergies: No Known Allergies (12/03/17) Reconcile Medications Clonazepam (Klonopin) 1 MG TABLET 1 TAB PO QPM PRN ANXIETY Levothyroxine Sodium (Synthroid) 88 MCG TABLET 88 MCG PO DAILY HORMONE REPLACEMENT (Reported) Sertraline HCl 25 MG TABLET 3 TAB PO 0800 depression Trazodone HCl 50 MG TABLET 1 TAB PO DAILY@2100 insomnia Triage Note: PT STATES SHE IS HAVING AN ANXIETY ATTACK. PT IS HAVING INSOMNIA AND SHE IS SCARED. PT CRYING AND SHAKING IN TRIAGE. PT STATES SHE HAS HX OF SAME. PT STATES SHE USE TO TAKE XANAX. PT SENT FROM PCP OFFICE. PT STATES HER THINKS MAYBE SHE IS GOING THROUGHT WITHDRAWELS FROM XANAX. PT STATES SHE DOESN'T WANT ANY MEDS, "I JUST NEED HELP". PT WAS HOSPITALIZED LAST WEEK IN [facility] AND STATES SHE WENT HOME AND SHE SHOULD HAVE STAYED LONGER. Triage Nurses Notes Reviewed? yes Onset: Gradual Duration: getting worse Timing: recent history Severity Numbers: 10 Associated Symptoms: insomnia HPI: Patient is a 52-year-old female with a past medical history of, depression and hyperlipidemia who presents emergency room with concerns of severe anxiety and insomnia. It is noted that previous old records indicate that patient was evaluated here current hospital on December 04 for concerns of intentional overdose of Xanax due to severe anxiety and depression patient was admitted to [facility] and was discharged on December 10 with major depressive disorder where she was advised to begin sertraline and trazodone She states that she believes that she was discharged to early from inpatient psychiatric unit in which she states that there she is having a severe anxiety attack for the past week or she is withdrawing from benzodiazepines. Patient states she does smoke marijuana to improve her anxiety denies any other illicit drugs denies any alcohol or tobacco. Denies any suicide or homicide ideation however this had insomnia for the past few days and palpitations She did follow up with IOP and states that the trazodone does not improve her symptoms Past History Travel History Traveled to [place] past 21 day No Medical History Any Pertinent Medical History? 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 No Review of Systems Review of Systems Constitutional: Reports: no symptoms. EENTM: Reports: no symptoms. Respiratory: Reports: no symptoms. Cardiovascular: Reports: see HPI, palpitations. GI: Reports: no symptoms. Genitourinary: Reports: no symptoms. Musculoskeletal: Reports: no symptoms. Skin: Reports: no symptoms. Neurological/Psychological: Reports: see HPI, anxiety. Hematologic/Endocrine: Reports: no symptoms. Immunologic/Allergic: Reports: no symptoms. All Other Systems: Reviewed and Negative Physical Exam Physical Exam General Appearance: anxious Head: atraumatic Eyes: Bilateral: normal appearance, PERRL, EOMI. Ears, Nose, Throat: normal pharynx, normal ENT inspection Neck: normal inspection Respiratory: normal breath sounds, no respiratory distress Cardiovascular: regular rate/rhythm Gastrointestinal: normal bowel sounds, soft, non-tender Neurological/Psychiatric: no motor/sensory deficits, awake Appearance/Memory/Insight: denies illness, disheveled Behavoir/Eye Contact/Speech: cooperative, compulsive, increased rate of speech Thoughts/Hallucinations: no apparent hallucination Skin: intact, normal color, warm/dry SAD PERSONS Done? patient not suicidal Progress Differential Diagnosis: drug intoxication, drug overdose, drug withdrawal, electrolyte abnormality, encephalitis, hypoglycemia, hypothyroidism, IC hem/mass /tumor, meningitis Plan of Care: Orders Procedure Date/time Status Regular Diet 12/14 D Active URINE DRUG SCREEN FOR ER ONLY 12/14 1518 Complete ETHANOL 12/14 1518 Complete COMPREHENSIVE METABOLIC PANEL 12/14 1518 Complete CBC WITHOUT DIFFERENTIAL 12/14 151 Complete ED CRISIS PSYCH CONSULT 12/14 1518 Active Laboratory Tests 12/14/17 1610: Anion Gap 16, Estimated GFR > 60, BUN/Creatinine Ratio 20.0, Glucose 85, Calcium 9.5, Total Bilirubin 1.2, AST 15, ALT 21, Alkaline Phosphatase 71, Total Protein 7.8, Albumin 4.8, Globulin 3.0, Albumin/Globulin Ratio 1.6, CBC w Diff NO MAN DIFF REQ, RBC 4.50, MCV 91.0, MCH 31.0, MCHC 34.0, RDW 12.2, MPV 7.6, Gran % 64.4, Lymphocytes % 29.0, Monocytes % 5.3, Eosinophils % 0.6, Basophils % 0.7, Absolute Granulocytes 5.0, Absolute Lymphocytes 2.2, Absolute Monocytes 0.4, Absolute Eosinophils 0, Absolute Basophils 0.1, Serum Alcohol < 10.0 12/14/17 1538: Urine Opiates Screen < 100, Methadone Screen 41, Barbiturate Screen < 60, Ur Phencyclidine Scrn < 6.00, Amphetamines Screen < 100, U Benzodiazepines Scrn 226 H, Urine Cocaine Screen < 50, Urine Cannabis Screen > 80.00 H Patient on initial examination denies any illness however does believe that she has severe anxiety versus benzodiazepine withdrawal. Patient denies any homicidal or suicidal ideation. Crisis management evaluated patient in which they discussed with me that she has a follow-up appointment at 1300 tomorrow and was advising patient did receive 1 mg of Klonopin in the emergency room and BE prescribed another milligram 1 tablet tonight if needed for further anxiety and will have follow-up appointment with IOP tomorrow. Discussed disposition plan with patient and who agree and have no questions. Upon discharge patient does look well and has improvement of her anxiety symptoms compared to initial presentation Again patient never disclosed 1 referred of any suicide ideation or homicidal ideation while in the emergency room and is here and agrees WITH HX Departure Departure Disposition: HOME OR SELF CARE Condition: Stable Clinical Impression Primary Impression: Anxiety Referrals: Howard IQBAL,Omar Goetz (PCP/Family) Additional Instructions: Past discussed begin the prescription of Klonopin tonight if he needed for your symptoms as directed, prescription is waiting at [facility] FOLLOW UP TOMORROW WITH YOUR IOP APPOINTMENT AT ONE PM IF SYMPTOMS WORSEN, RETURN TO THE ER. Departure Forms: Customer Survey General Discharge Information Prescriptions: Current Visit Scripts Clonazepam (Klonopin) 1 TAB PO QPM PRN ANXIETY #1 TAB
[2017-12-14 16:17] LABS: ABSOLUTE BASOPHIL COUNT 0.1 /CUMM (0.0-0.2); ABSOLUTE EOSINOPHIL COUNT 0 /CUMM (0.0-0.7); ABSOLUTE LYMPH COUNT 2.2 /CUMM (1.2-3.4); ABSOLUTE MONOCYTE COUNT 0.4 /CUMM (0.10-0.60); BASOPHIL % 0.7 % (0.0-2.0); EOSINOPHIL % 0.6 % (0-5); GRANULOCYTE % 64.4 % (42.2-75.2); HEMATOCRIT 40.9 % (37-47); MEAN PLATELET VOLUME 7.6 FL (7.4-10.4); PLATELET COUNT 381 /CUMM (130-400); RBC DISTRIBUTION WIDTH 12.2 % (11.5-14.5); WHITE BLOOD CELL COUNT 7.7 /CUMM (4.8-10.8)
--- NOTE | 2017-12-14 16:56 | History & Physical ---
General Information and HPI Allergies/Medications Allergies: Coded Allergies: No Known Allergies (12/03/17) Home Med list Levothyroxine Sodium (Synthroid) 88 MCG TABLET 88 MCG PO DAILY HORMONE REPLACEMENT (Reported) Sertraline HCl 25 MG TABLET 3 TAB PO 0800 depression Trazodone HCl 50 MG TABLET 1 TAB PO DAILY@2100 insomnia Past History Travel History Traveled to [place] past 21 day No Medical History Neurological: NONE EENT: NONE Cardiovascular: hyperlipidemia Respiratory: NONE Gastrointestinal: NONE Hepatic: NONE Renal: NONE Musculoskeletal: NONE Psychiatric: anxiety, depression Endocrine: hypothyroidism 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 spouse ETOH Use: denies use Illicit Drug Use: denies illicit drug use
--- NOTE | 2017-12-14 17:11 | ED PSYCH CRISIS CONSULTATION ---
Crisis Consult Basic Assessment Date of Consult: 12/14/17 Responsible Person/Accompanied By: self Insurance Authorization: Insurance #1: Insurance name: OUT OF STATE MARCELLE Phone number: Policy number: [id number] Group number: [id number] Authorization number: ED Provider: Patient's ED Provider: Tom Holder Primary Care Physician: Patient's PCP: Omar Lawrence MD PCP's Current Psychiatrist: [facility] Chief Complaint: Psychiatric Related Complaint Patient's Quote: I have anxiety attacks Present Illness: Pt is a 52 yo female presenting this afternoon to [place] ED. Pt reports experiencing panic attacks past 2 days and also reports withdrawing from xanax. Pt was admitted to [facility] on December 03 for a Xanax overdose and statements indicating suicidal intent. Pt was treated for depression and tapered off xanax with Ativan. Pt discharged from [facility] on 12/10 with prescriptions for Zoloft for depression and Trazadone for insomnia with plan to continue treatment at [facility]. Pt attended intake 12/10 and first group on 12/13. Pt presenting as alert, cooperative, pressured, anxious and OX3. 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 Pt also verbalizing frustration that her overdose precipitating last weeks [facility]PS admission was intentional. Pt stresses that she has never been suicidal (prior documentation indicated pt was experiencing SI during last week ED consultation).Pt reports recent anxiety increase is due to stress at work and no longer enjoying her job. Pt denies recent etoh or substances except for marijuana. Pt states has old bottle of benzos but she hasn't taken any. The CSSRS was completed with the patient. Pt. identified risk factors: significant stress at work and in marriage, recent SA; anxiety. Pt's protective factors are that she lives with family, has two children and is employed. Case reviewed with Dr Weber. Plan to medicate pt in Ed with 1mg Klonopin for anxiety and possible withdrawal symptoms and discharge home with a prescription for one dose of 1mg Klonopin to take at home this evening if needed. Plan for pt to attend [facility] tomorrow at 1:30p and meet with new provider to discuss her medications. Plan reviewed with both pt and they both report feeling safe and agreement with plan. will transport pt home and make arrangment to hop picker pt vehicle from [facility] parking lot tomorrow. Both pt and instructed to return to [place] ED if needed. Patient's Address: [place] [address] Other Phone Number: Who Do You Live With? Family ( and 2 children) Family/Informants Interviewed: collateral provided by Sheldon. He reports pt did well following CPS discharge until pt call ed yesterday expressing she was having a panic attack. He states he doesn't think pt is a suicide risk and states he doesn't think her overdose last week was intentional. He reports thinking she was having a lot of anxiety and wasn't aware how many she took. He reports being worried pt is dealing with withdrawal. He reports not thinking pt needs to be readmitted and is comfortable with plan for pt to attend IOP appt tomorrow and discuss medications further with her new assigned provider. Allergies - Coded Allergies: No Known Allergies (12/03/17) Current Medications - Scheduled Medications Levothyroxine Sodium (Synthroid) 88 MCG TABLET 88 MCG PO DAILY HORMONE REPLACEMENT (Reported) Entered as Reported by Gary Major on 12/04/17 1327 Sertraline HCl 25 MG TABLET 3 TAB PO 0800 depression #42 TAB Prescribed by Russ Eric MD on 12/10/17 Trazodone HCl 50 MG TABLET 1 TAB PO DAILY@2100 insomnia #14 TAB Prescribed by Russ Eric MD on 12/10/17 Scheduled PRN Medications Clonazepam (Klonopin) 1 MG TABLET 1 TAB PO QPM PRN ANXIETY #1 TAB Prescribed by Tom Castaneda on 12/14/17 Discontinued Medications Alprazolam 0.5 MG TABLET 1 TAB PO TIDPRN MENTAL HEALTH (Reported) Discontinued reason: now off Sertraline HCl 50 MG TABLET 1 TAB PO DAILY MENTAL HEALTH (Reported) Discontinued reason: Changed Dose Laboratory Results: Laboratory Tests 12/14/17 1610: Anion Gap 16, Estimated GFR > 60, BUN/Creatinine Ratio 20.0, Glucose 85, Calcium 9.5, Total Bilirubin 1.2, AST 15, ALT 21, Alkaline Phosphatase 71, Total Protein 7.8, Albumin 4.8, Globulin 3.0, Albumin/Globulin Ratio 1.6, CBC w Diff NO MAN DIFF REQ, RBC 4.50, MCV 91.0, MCH 31.0, MCHC 34.0, RDW 12.2, MPV 7.6, Gran % 64.4, Lymphocytes % 29.0, Monocytes % 5.3, Eosinophils % 0.6, Basophils % 0.7, Absolute Granulocytes 5.0, Absolute Lymphocytes 2.2, Absolute Monocytes 0.4, Absolute Eosinophils 0, Absolute Basophils 0.1, Serum Alcohol < 10.0 12/14/17 1538: Urine Opiates Screen < 100, Methadone Screen 41, Barbiturate Screen < 60, Ur Phencyclidine Scrn < 6.00, Amphetamines Screen < 100, U Benzodiazepines Scrn 226 H, Urine Cocaine Screen < 50, Urine Cannabis Screen > 80.00 H Past History Past Medical History Neurological: NONE EENT: NONE Cardiovascular: hyperlipidemia Respiratory: NONE Gastrointestinal: NONE Hepatic: NONE Renal: NONE Musculoskeletal: NONE Psychiatric: anxiety, depression Endocrine: hypothyroidism 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 Pt concerne dshe needs medication for anxiety and withdrawal symptoms Diagnosis by History: Depression Anxiety Substance Use/Abuse History Drug Use/Abuse 1 Substances Used/Abused Yes Substance Used/Abused Benzodiazepines Last Used last week For how long 20 yrs Drug Use/Abuse 2 Substances Used/Abused Yes Substance Used/Abused Marijuana Last Used couple days ago How often occasional For how long past 2 yrs Substance Abuse Treatment Substance Abuse Treatment Past Substance Abuse [place] No Inpatient Treatment No Outpatient Treatment No Comments: pt reports 20 yr hx of Xanax prescription 1-2 mg per day. Pt reports marijuana use a fe times/week. Pt denies etoh Current Mental Status Mental Status Orientation: Person, Place, Situation Affect: Anxious Speech: Pressured Neuro-vegetative: Helpless, Sleep Disturbance Appearance Appearance- Dress/Hygiene: hospital scrubs; groomed; appeared anxious with pressured speech; good eye contact. Behaviors Thought Process: WNL Thought Content: WNL Memory: WNL Insight: Fair SI/HI Risk Assessment Past Suicidal Ideation/Attempts Yes (per records; pt denies) Current Suicidal Ideation/Att No Past Homicidal Ideation/Att: No Current Homicidal Ideation/Attempts No Degree of Intent: None Gravely Disabled: Poor Impulse Control Risk Factors: access to lethal means, high anxiety/distress, history of suicide atmpts, SA/MH hospitalized Lethality Ratin PTSD Checklist PTSD Done? patient declined ED Management Sitter: Yes Restraints: No DSM5/PS Stressors/Medical Prob Diagnosis' (DSM 5, Stressors, Medical): Anxiety D/O F41.1 Benzo Use D/O F13.20 employment menopause Current GAF: 35 Comments: Pt reports having panic attacks and possibly experiencing withdrawal symptoms from detention benzo use. Pt reports concern that she was tapered too quickly off Xanax. Pt denies prior xanax overdose was a suicide attempt. Pt states she had overmedicated but inappropriately documented as attempting suicide. Departure Disposition Psych Medical Clearance Date: 12/14/17 Medically Cleared at: 1630 Time Started: 1630 Time Ended: 1645 Psychiatrist Consulted: Nils Weber MD Date Disposition Established: 12/14/17 Time Disposition Established: 1715 Plan for Disposition - Modality: [facility] Facility: [facility] Follow-up Appt Date: 12/15/17 Follow-Up Appt Time: 1330 Rationale for Disposition: Pt medicated with 1 mg Klonopin in ED and provided a prescription for 1 dose of 1mg Klonopin for later tonight if needed to treat anxiety and possible withdrawal symptoms from prior Xanax use. Plan for pt to attend her IOP appt tomorrow and meet with provider to discuss current symptoms and appropriate medications. Pt directed to return to ED if needed. Referrals Howard IQBAL,Omar Goetz (PCP/Family)
[2017-12-14 17:25] VITALS: BP 144/93
[2017-12-14] MEDS ORDERED: KLONOPIN1 M1 PO (17:44)
== END 2017-12-14 18:30 ==
LOC: ERH 14:28
PROVIDERS: Physician Assistant
DX: F41.9 Anxiety disorder, unspecified (principal)
CPT/HCPCS: 80307; G0463; G0480; J2405

== ENCOUNTER 2018-01-17 08:56 | Inpatient (IN) | payer OTHER ==
[~2018-01-17] VITALS: Ht 154.9 cm; Wt 63.5 kg
[~2018-01-17 08:56] MED LIST changes: +KLONOPIN1 M1 PO
--- NOTE | 2018-01-17 09:03 | ED PSYCHIATRIC COMPLAINT ---
History of Present Illness General Chief Complaint: Psychiatric Related Complaint Stated Complaint: BIBA FOR SI Source: patient, old records, EMS Exam Limitations: no limitations Vital Signs & Intake/Output Vital Signs & Intake/Output Vital Signs Date Time Temp Pulse Resp B/P B/P Pulse O2 O2 Flow FiO2 Mean Ox Delivery Rate 01/18 936 98.8 101 18 132/95 97 Room Air 01/17 09 98.4 88 16 128/84 98 Room Air 01/17 0912 Room Air Allergies Coded Allergies: No Known Allergies (12/03/17) Reconcile Medications Clonazepam (Klonopin) 1 MG TABLET 1 TAB PO QPM PRN ANXIETY Levothyroxine Sodium (Synthroid) 88 MCG TABLET 88 MCG PO DAILY HORMONE REPLACEMENT (Reported) Sertraline HCl 25 MG TABLET 3 TAB PO 0800 depression Trazodone HCl 50 MG TABLET 1 TAB PO DAILY@2100 insomnia Triage Nurses Notes Reviewed? yes HPI: Patient brought in on a police paper after posting suicidal statements on [employer] grams. Patient states that she was just feeling depressed and it was stupid to but there. Patient states that all she wants to do is sleep because she has been suffering from insomnia lately and she finally fell asleep this morning and the next thing She knew the police were knocking on her door. Patient denies any suicidal or homicidal ideations. Patient denies any ingestion however she did take Xanax this morning to help her sleep. Past History Travel History Traveled to [place] past 21 day No Medical History Any Pertinent Medical History? 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 No Review of Systems Review of Systems Constitutional: Reports: no symptoms. EENTM: Reports: no symptoms. Respiratory: Reports: no symptoms. Cardiovascular: Reports: no symptoms. GI: Reports: no symptoms. Genitourinary: Reports: no symptoms. Musculoskeletal: Reports: no symptoms. Skin: Reports: no symptoms. Neurological/Psychological: Reports: no symptoms. Hematologic/Endocrine: Reports: no symptoms. Immunologic/Allergic: Reports: no symptoms. All Other Systems: Reviewed and Negative Physical Exam Physical Exam General Appearance: well developed/nourished, mild distress Head: atraumatic Eyes: Bilateral: PERRL, EOMI. Ears, Nose, Throat: normal pharynx, normal ENT inspection, hearing grossly normal Neck: normal inspection, supple Respiratory: normal breath sounds, chest non-tender, no respiratory distress, lungs clear Cardiovascular: regular rate/rhythm, normal peripheral pulses Gastrointestinal: normal bowel sounds, soft, non-tender Extremities: normal range of motion Neurological/Psychiatric: no motor/sensory deficits, awake, alert, oriented x 3 Appearance/Memory/Insight: appropriate appearance, denies illness Behavoir/Eye Contact/Speech: cooperative, normal speech, good eye contact Thoughts/Hallucinations: normal thought pattern, no apparent hallucination Skin: intact, normal color, warm/dry SAD PERSONS Done? CRISIS CONSULT OBTAINED Progress Differential Diagnosis: drug intoxication, drug overdose, drug withdrawal, electrolyte abnormality Plan of Care: Orders Procedure Date/time Status Regular Diet 01/17 L Active Continuous Observation Monitor 01/17 900 Active URINE DRUG SCREEN FOR ER ONLY 01/17 900 Complete URINALYSIS 01/17 900 Complete ETHANOL 01/17 900 Complete COMPREHENSIVE METABOLIC PANEL 01/17 900 Complete CBC WITHOUT DIFFERENTIAL 01/17 900 Complete ED CRISIS PSYCH CONSULT 01/17 900 Active Laboratory Tests 01/17/18 1025: Urine Opiates Screen 218, Methadone Screen < 40, Barbiturate Screen < 60, Ur Phencyclidine Scrn < 6.00, Amphetamines Screen < 100, U Benzodiazepines Scrn > 800 H, Urine Cocaine Screen < 50, Urine Cannabis Screen 20.80, Urine Color YEL, Urine Clarity CLEAR, Urine pH 6.0, Ur Specific Taberg 1.010, Urine Protein NEG, Urine Ketones NEG, Urine Nitrite NEG, Urine Bilirubin NEG, Urine Urobilinogen 0.2, Ur Leukocyte Esterase SMALL H, Ur Microscopic SEDIMENT EXAMINED, Urine RBC RARE, Urine WBC 1-3 H, Ur Epithelial Cells FEW, Urine Hemoglobin TRACE-INTACT, Urine Glucose NEG 01/17/18 0907: Anion Gap 15, Estimated GFR > 60, BUN/Creatinine Ratio 15.0, Glucose 93, Calcium 9.5, Total Bilirubin 0.8, AST 19, ALT 32, Alkaline Phosphatase 75, Total Protein 8.5 H, Albumin 4.9, Globulin 3.6, Albumin/Globulin Ratio 1.4, CBC w Diff NO MAN DIFF REQ, RBC 5.01, MCV 92.2, MCH 31.3 H, MCHC 34.0, RDW 13.0, MPV 7.2 L, Gran % 76.3 H, Lymphocytes % 16.4 L, Monocytes % 5.1, Eosinophils % 1.6, Basophils % 0.6, Absolute Granulocytes 8.0 H, Absolute Lymphocytes 1.7, Absolute Monocytes 0.5, Absolute Eosinophils 0.2, Absolute Basophils 0.1, Serum Alcohol < 10.0 Comments: A PEC has been signed. A bed search is underway. Patient will be admitted to inpatient psychiatry if a bed opens up if not will be transferred to another psychiatric facility. Departure Departure Disposition: STILL A PATIENT Condition: Stable Clinical Impression Primary Impression: Suicidal ideations Referrals: Howard IQBAL,Omar Goetz (PCP/Family) Departure Forms: Customer Survey General Discharge Information Psych Admission Note Psychiatric Admission: I have seen and evaluated OSVALDO FLORES. I have also reviewed all the pertinent lab results and diagnostic results. OSVALDO FLORES will be admitted to our inpatient Psychiatric unit for treatment and care.
[2018-01-17 09:15] LABS: ABSOLUTE BASOPHIL COUNT 0.1 /CUMM (0.0-0.2); ABSOLUTE EOSINOPHIL COUNT 0.2 /CUMM (0.0-0.7); ABSOLUTE LYMPH COUNT 1.7 /CUMM (1.2-3.4); ABSOLUTE MONOCYTE COUNT 0.5 /CUMM (0.10-0.60); BASOPHIL % 0.6 % (0.0-2.0); EOSINOPHIL % 1.6 % (0-5); GRANULOCYTE % 76.3 % (42.2-75.2); HEMATOCRIT 46.2 % (37-47); MEAN CORPUSCULAR HGB 31.3 PG (27.0-31.0); MEAN CORPUSCULAR VOLUME 92.2 FL (81.0-99.0); MEAN PLATELET VOLUME 7.2 FL (7.4-10.4); PLATELET COUNT 374 /CUMM (130-400); RED BLOOD CELL CT 5.01 /CUMM (4.20-5.40); WHITE BLOOD CELL COUNT 10.4 /CUMM (4.8-10.8)
--- NOTE | 2018-01-17 12:04 | ED PSYCH CRISIS CONSULTATION ---
Crisis Consult Basic Assessment Date of Consult: 01/17/18 Responsible Person/Accompanied By: PEER Insurance Authorization: Insurance #1: Insurance name: OUT OF STATE MARCELLE Phone number: Policy number: [id number] Group number: [id number] Authorization number: ED Provider: Patient's ED Provider: Alex IQBAL,Grupo Juan Primary Care Physician: Patient's PCP: Omar Lawrence MD PCP's Chief Complaint: Psychiatric Related Complaint Patient's Quote: "I'm in I-A-P" Present Illness: Pt is 52 yo female BIBA on PEER for SI statements made on social media ( ie an O.D reference on [employer]) and sending multiple texts to mother in law and friend reaching out for help and texts sating "nevermind , I'm so lonely and scared, I'll be soon, goodbye." Her BAL is negative and UTOX is positive for benzodiazapines >800. Pt presents as lethargic, irritable, tearful and under the heavy influence of benzodiazapines. Her speech is slurred and eye contact is poor. Pt denies SI/HI/ AVH at present. She rated 10/10 for depression and anxiety. She said she is here because she is in IOP and has insomina. Pt said she is not suicidal and she will take down what she said. Pt would not state what she put on Memriseagram. Pt also said she texted people for help. She said IAP --IOP is not helping and she is not getting any better but does not feel she needs to go into the hospital. SW inquired what would help make her feel better and she replied URSULA. She stated, " I only took a couple of my husbands xanax ( .5mg 3-4 pills pt thinks), I got desperated and needed to sleep. I just wanted help, because nothing is helping so I reached out to people so I could just get a hug." Pt became more tearful. SHe denies ETOH or cannabis use. Pt stated " it doesn't matter if I am happy/ sad/angry/miserbale or excited I always feel panic. I just need to get some sleep." Pt noted her marriage has not been good for many years, " nothing is going on, he is all about money, we haven't been sexually active 8+ years." Pt presents with poor insight into benzo abuse and presents with significant risk factors of minimizing depression symptoms. Pt has hx of minimizing or denying suicidal ideations. Pt presents as hopeless and helpless and just wants to sleep. Per face to face collateral with Sheldon. He recieved texts from mother in law and friends that pt was texting concerning SI related texts ie. " saying she is done and good bye." Sheldon thinks pt took his xanax- he said he should have hidden it. He said he has been concerned as she has been lethargic since Wednesday night after she received an email from work for an update ( pt is on FMLA). He said she has wanted her space since then and slept in the car to get away for a little bit. Sheldon said work is a primary stressor for her . is concerned and thinks she might need additional supports. Pt has been in IOP after recent discharge from [facility] ( 12/04/17-12/10/17) for MDD and overdose on benzodiazapines. She recently called out and missed group 01/14 for depression and called out 01/07 and speech was slowed and at times slurring. Medication List Current Psychiatric Med(s): 12/29/17 - 01/11/18 lamictal 25mg once daily (with snack) trazodone 50mg bedtime "if needed" insomnia gabapentin 600-900mg (2-3 capsules) bedtime "if needed" thoughts affecting sleep 01/12/18+ lamictal 50mg once daily (with snack) trazodone 50mg bedtime "if needed" insomnia gabapentin 600-900mg (2-3 capsules) bedtime "if needed" thoughts affecting sleep Case consulted with Dr. Flores and recommends inpatient admission for mood stabilization and safety. Pt will be placed on [facility]. Patient's Address: [place] [address] Other Phone Number: Who Do You Live With? Family Family/Informants Interviewed: Sheldon- Allergies - Coded Allergies: No Known Allergies (12/03/17) Current Medications - Scheduled Medications Levothyroxine Sodium (Synthroid) 88 MCG TABLET 88 MCG PO DAILY HORMONE REPLACEMENT (Reported) Entered as Reported by Gary Major on 12/04/17 1327 Sertraline HCl 25 MG TABLET 3 TAB PO 0800 depression #42 TAB Prescribed by Russ Eric MD on 12/10/17 Trazodone HCl 50 MG TABLET 1 TAB PO DAILY@2100 insomnia #14 TAB Prescribed by Russ Eric MD on 12/10/17 Scheduled PRN Medications Clonazepam (Klonopin) 1 MG TABLET 1 TAB PO QPM PRN ANXIETY #1 TAB Prescribed by Tom Castaneda on 12/14/17 Laboratory Results: Laboratory Tests 01/17/18 1025: Urine Opiates Screen 218, Methadone Screen < 40, Barbiturate Screen < 60, Ur Phencyclidine Scrn < 6.00, Amphetamines Screen < 100, U Benzodiazepines Scrn > 800 H, Urine Cocaine Screen < 50, Urine Cannabis Screen 20.80, Urine Color YEL, Urine Clarity CLEAR, Urine pH 6.0, Ur Specific [place] 1.010, Urine Protein NEG, Urine Ketones NEG, Urine Nitrite NEG, Urine Bilirubin NEG, Urine Urobilinogen 0.2, Ur Leukocyte Esterase SMALL H, Ur Microscopic SEDIMENT EXAMINED, Urine RBC RARE, Urine WBC 1-3 H, Ur Epithelial Cells FEW, Urine Hemoglobin TRACE-INTACT, Urine Glucose NEG 01/17/18 0907: Anion Gap 15, Estimated GFR > 60, BUN/Creatinine Ratio 15.0, Glucose 93, Calcium 9.5, Total Bilirubin 0.8, AST 19, ALT 32, Alkaline Phosphatase 75, Total Protein 8.5 H, Albumin 4.9, Globulin 3.6, Albumin/Globulin Ratio 1.4, CBC w Diff NO MAN DIFF REQ, RBC 5.01, MCV 92.2, MCH 31.3 H, MCHC 34.0, RDW 13.0, MPV 7.2 L, Gran % 76.3 H, Lymphocytes % 16.4 L, Monocytes % 5.1, Eosinophils % 1.6, Basophils % 0.6, Absolute Granulocytes 8.0 H, Absolute Lymphocytes 1.7, Absolute Monocytes 0.5, Absolute Eosinophils 0.2, Absolute Basophils 0.1, Serum Alcohol < 10.0 Past History Past Medical History Neurological: NONE EENT: NONE Cardiovascular: hyperlipidemia Respiratory: NONE Gastrointestinal: NONE Hepatic: NONE Renal: NONE Musculoskeletal: NONE Psychiatric: anxiety, depression Endocrine: hypothyroidism Cancer(s): NONE 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 Past Surgical History Surgical History: non-contributory Psychosocial History Strengths/Capabilities: Loves her children, is employed, asking for help Physical Limitations (Interventions): none known Psychiatric Treatment History Psych Treatment Psychiatric Treatment Yes Inpatient Treatment Yes Outpatient Treatment Yes Location of Treatment [facility] Reason for Treatment Major Depression, suicidal ideation, and cannabis Dates of Treatment November 2017 - present Response to Treatment poor Diagnosis by History: Depression Anxiety Substance Use/Abuse History Drug Use/Abuse 1 Substances Used/Abused Yes Substance Used/Abused Marijuana First Use unknown Last Used 2 mos ago How much used/taken unknown How often unclear For how long unknown Route of use smoke Drug Use/Abuse 2 Substances Used/Abused Yes Substance Used/Abused Benzodiazepines First Use unknown Last Used unknown How much used/taken .5mg 3-4 pills How often pt is poor historian For how long unknown Route of use oral Substance Abuse Treatment Substance Abuse Treatment Past Substance Abuse [place] No Inpatient Treatment No Outpatient Treatment No Current Mental Status Mental Status Orientation: Person, Place, Situation Affect: Depressed, Hopeless, Lonely, Sad Speech: Slurred Neuro-vegetative: Anhedonia, Concentration Poor, Energy Decreased, Helpless, Sexual Interest Decreased, Sleep Disturbance Appearance Appearance- Dress/Hygiene: Pt is dressed in blue [facility] gown, hair is disheveled and hygiene is fair Behaviors Thought Process: Irrational Thought Content: WNL Memory: Impaired Insight: Poor SI/HI Risk Assessment Past Suicidal Ideation/Attempts Yes Current Suicidal Ideation/Att No Past Homicidal Ideation/Att: No Current Homicidal Ideation/Attempts No Degree of Intent: Pt acknowledges she made suicidal statements but denies intent. Danger To: Self Gravely Disabled: Lack of Insight, Poor Impulse Control, Poor Judgment Risk Factors: access to lethal means, high anxiety/distress, history of suicide atmpts, SA/MH hospitalized, substance abuse, poor impulse control, lack of outcome concern, limited support Lethality Ratin PTSD Checklist PTSD Done? pt unable to participate ED Management Sitter: Yes Restraints: No DSM5/PS Stressors/Medical Prob Diagnosis' (DSM 5, Stressors, Medical): Dx: Bipolar Disorder MRE Mixed, F41.1 - CYNTHIA; F13.20 - Sedative Use D/O, severe; F12.10 - Cannabis Use D/O, mild. Medical Dx: Hypothyroid Stressors: employment, marital issues Current GAF: 25 Departure Disposition Psych Medical Clearance Date: 01/17/18 Medically Cleared at: 1100 Time Started: 1100 Time Ended: 1215 Psychiatrist Consulted: Ashley Flores MD Date Disposition Established: 01/17/18 Time Disposition Established: 1214 Plan for Disposition - Modality: Inpatient Psychiatry Rationale for Disposition: Pt presents to ED. on PEER for suicidal statements on social media( reference to an overdose) and texts made to family and friends stating " good bye." Pt presents with poor insight/ judgement in regards to these statements and benzo abuse. Pt has hx of minimizing depressive symptoms . Case consulted with Dr. Flores and recommends inpatient treatment for mood stabilizatin and safety. Pt will be placed on PEC. Type of IP Admission: PEC Referrals Howard IQBAL,Omar Goetz (PCP/Family)
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
[2018-01-17 18:36] VITALS: BP 126/70
--- NOTE | 2018-01-17 19:04 | Admission Certification ---
Admission Certification Certification Statement - As attending physician, I certify that at the time of - admission, based on clinical presentation, severity of - symptoms, need for further diagnostic testing and - therapeutic interventions, and risk of adverse outcomes - without in-hospital treatment, in my clinical assessment, - this patient requires an acute hospital stay for a minimum - of two nights or longer. I have also considered psychsocial - factors such as support system, advanced age, financial - issues, cognitive issues, and failed out-patient treatments, - past re-admission history, safety of patient, and lack of - compliance as applicable. Specific rationale supporting this admission is: Depression, suicidal ideation.
--- NOTE | 2018-01-17 19:06 | History & Physical ---
General Information and HPI MD Statement: I have seen and personally examined OSVALDO FLORES and documented this H&P. The patient is a 52 year old F who presented with a patient stated chief complaint of [suicidal ideation]. Source of Information: patient Exam Limitations: no limitations History of Present Illness: 52 yo F with h/o anxiety, depression, hypothyroidism, is admitted to Inpatient Psychiatry after she made some SI statements on social media and sent texts to her friends. When I evaluated patient, she was upset that she was in the ER for 10 hours and some doctor who did not even talk to her admitted her to Psych. She keeps repeating, 'I should have just left from the ER'. She states, she made some comments out of frustration but did not really mean them. She is lethargic but answers questions appropriately. She denies excessive use of benzos although her urine tox is positive for benzos. She denies smoking or alcohol use. Of note, she was recently admitted to [facility] (November 2017) after intentional overdose with xanax and for major depression. She has a h/o cannabis use. She follows up with IOP. She c/o insomnia. Currently she feels well, wishes to go home. She denies chest pain, palpitations , nausea, vomiting, dyspnea, lightheadedness, diarrhea or urinary symptoms. Allergies/Medications Allergies: Coded Allergies: No Known Allergies (12/03/17) Home Med list Clonazepam (Klonopin) 1 MG TABLET 1 TAB PO QPM PRN ANXIETY Levothyroxine Sodium (Synthroid) 88 MCG TABLET 88 MCG PO DAILY HORMONE REPLACEMENT (Reported) Sertraline HCl 25 MG TABLET 3 TAB PO 0800 depression Trazodone HCl 50 MG TABLET 1 TAB PO DAILY@2100 insomnia Compliance With Home Meds: FAIR Past History Travel History Traveled to [place] past 21 day No Medical History Neurological: NONE EENT: NONE Cardiovascular: hyperlipidemia Respiratory: NONE Gastrointestinal: NONE Hepatic: NONE Renal: NONE Musculoskeletal: NONE Psychiatric: anxiety, depression Endocrine: hypothyroidism Cancer(s): NONE 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 Home Who Do You Live With? spouse Services at Home: None Primary Language: Sinhala Smoking Status: Never Smoked ETOH Use: occasional use Illicit Drug Use: denies illicit drug use Functional Ability ADLs Independent: dressing, eating, toileting, bathing. Ambulation: independent IADLs Independent: food prep, telephone, transportation. Employment History Employment Employed ([employer]) Review of Systems Review of Systems Constitutional: Denies: no symptoms, see HPI. Cardiovascular: Denies: chest pain, palpitations. Respiratory: Denies: cough, short of breath, sputum production. GI: Denies: abdominal pain, nausea, vomiting. Genitourinary: Denies: dysuria, frequency, hematuria. Musculoskeletal: Denies: back pain. All Other Systems: Reviewed and Negative Exam & Diagnostic Data Last 24 Hrs of Vital Signs/I&O Vital Signs Date Time Temp Pulse Resp B/P B/P Pulse O2 O2 Flow FiO2 Mean Ox Delivery Rate 01/17 1836 98.9 96 126/70 01/17 1712 97.5 92 20 142/85 99 Room Air 01/17 0936 98.8 101 18 132/95 97 Room Air 01/17 0924 98.4 88 16 128/84 98 Room Air 01/17 0912 Room Air Intake & Output 01/17 1600 01/17 0800 01/17 0000 Intake Total Output Total Balance Patient 140 lb Weight Weight Estimated Measurement Method Physical Exam General Appearance Oriented X3, Cooperative, No Acute Distress, Lethargic and irritable, speech is slightly slurred. Skin No Breakdown, No Significant Lesion HEENT PERRLA, EOMI, Mucous Membr. moist/pink Neck Supple Cardiovascular Regular Rate, Normal S1, Normal S2, No Murmurs Lungs Clear to Auscultation, Normal Air Movement Abdomen Normal Bowel Sounds, Soft, No Tenderness Neurological Exam Findings: Strength at 5/5 X4 Ext, Sensation Intact Cranial Nerves II through XII: Intact Extremities No Edema, Normal Pulses, No Tenderness/Swelling Last 24 Hrs of Labs/Myles: Laboratory Tests 01/17/18 1025: Urine Opiates Screen 218, Methadone Screen < 40, Barbiturate Screen < 60, Ur Phencyclidine Scrn < 6.00, Amphetamines Screen < 100, U Benzodiazepines Scrn > 800 H, Urine Cocaine Screen < 50, Urine Cannabis Screen 20.80, Urine Color YEL, Urine Clarity CLEAR, Urine pH 6.0, Ur Specific [place] 1.010, Urine Protein NEG, Urine Ketones NEG, Urine Nitrite NEG, Urine Bilirubin NEG, Urine Urobilinogen 0.2, Ur Leukocyte Esterase SMALL H, Ur Microscopic SEDIMENT EXAMINED, Urine RBC RARE, Urine WBC 1-3 H, Ur Epithelial Cells FEW, Urine Hemoglobin TRACE-INTACT, Urine Glucose NEG 01/17/18 0907: Anion Gap 15, Estimated GFR > 60, BUN/Creatinine Ratio 15.0, Glucose 93, Calcium 9.5, Total Bilirubin 0.8, AST 19, ALT 32, Alkaline Phosphatase 75, Total Protein 8.5 H, Albumin 4.9, Globulin 3.6, Albumin/Globulin Ratio 1.4, CBC w Diff NO MAN DIFF REQ, RBC 5.01, MCV 92.2, MCH 31.3 H, MCHC 34.0, RDW 13.0, MPV 7.2 L, Gran % 76.3 H, Lymphocytes % 16.4 L, Monocytes % 5.1, Eosinophils % 1.6, Basophils % 0.6, Absolute Granulocytes 8.0 H, Absolute Lymphocytes 1.7, Absolute Monocytes 0.5, Absolute Eosinophils 0.2, Absolute Basophils 0.1, Serum Alcohol < 10.0 Diagnostic Data EKG Results -- CXR Results -- Assessment/Plan Assessment: 52 yo F with h/o anxiety, depression, hypothyroidism, is admitted to Inpatient Psychiatry for suicidal ideation. - Continue management of depression as per Psych team. - Continue synthroid 88 mcg for hypothyroidism. Her last TSH was 1.350 on December 03. No need to repeat at this point. DVT ppx - low risk, early ambulation. As Ranked By This Provider Problem List: 1. Depression 2. Suicidal ideations Miscellaneous Miscellaneous Documentation Attending Case Discussed With: Shaniqua Tobar MD Primary Care Physician: Omar Lawrence MD Patient sees these Specialists -- Level of Patient Care: CHERYL Galeano Attending Review Statement Attending Statement Attending Statement: examined this patient, discuss w/resident/PA/SET UP MECH[employer]IC HEADING MACHINES
[2018-01-17 19:59] VITALS: BP 129/80
[2018-01-17 23:02] VITALS: BP 122/60
[2018-01-18 07:58] VITALS: BP 111/71
[2018-01-18 08:06] VITALS: BP 111/71
--- NOTE | 2018-01-18 08:59 | CPS PROVIDER INIT ASMT PSYCH ---
Psychiatric Admission Social Work Msw's Note Reviewed: Yes Patient Seen and Examined: Yes Identifying Information: Pt is 52 yo female XIN on PEER for SI statements made on social media Chief Complaint: "I just wanted a hug and compassion" Reaction to Hospitalization: Involuntary admission History of Present Illness Onset of Illness: 52 yo female XIN on PEER for SI statements made on social media (an O.D reference on [employer]) and sending multiple texts to mother in law and friend reaching out for help and texts sating "nevermind , I'm so lonely and scared, I' ll be soon, goodbye." Her BAL is negative and UTOX is positive for benzodiazapines >800. She rated 10/10 for depression and anxiety. She said she is here because she is in IOP and has insomina. Pt said she is not suicidal and she will take down what she said. Pt would not state what she put on [employer]. Pt also said she texted people for help. \\I just wanted help, because nothing is helping so I reached out to people so I could just get a hug." Pt became more tearful. SHe denies ETOH or cannabis use. Pt stated " it doesn't matter if I am happy/sad/angry/ miserbale or excited I always feel panic. I just need to get some sleep." Pt noted her marriage has not been good for many years, " nothing is going on, he is all about money, we haven't been sexually active 8+ years." Circumstances Leading to Admission: The patient made a reference to an overdose sensation on social media and she also texted [id number] and or friends ending her text with shaggy Problem(s) Justifying Need for Admission: Reference to possible thoughts of suicide Past Psychiatric History Past Diagnosis(es)- if any: Bipolar Disorder MRE Mixed, F41.1 - CYNTHIA; F13.20 - Sedative Use D/O, severe; F12.10 - Cannabis Use D/O, mild. Hypothyroid Past Precipitating Factors- if any: Possibly abuse of substances - Include inpatient and outpatient treatment Treatment History: Most recently the patient has been in the intensive outpatient program. The patient has been previously in the inpatient psychiatric unit at [facility] Please refer to the numerous notes in the intensive outpatient program and the previous inpatient psychiatric admission for details History of Suicide Attempts or Gestures The patient denied suicide attempts in the past Substance Abuse History: Tobacco: denied Alcohol: denied Illicits: mj daily, 2 bowls, could not quantify amount Abusing her rx for xanax, may also be taking husbands rx Allergies: Coded Allergies: No Known Allergies (12/03/17) Home Med List: Patient reported that she has not been taking the prescribed Zoloft The patient reported that she has no intention of taking lamotrigine and Lamictal The patient claims that medications do not help and her goal is to be off all medications - Include any medical condition(s) that may - impact the patient's recovery/remission Past Medical History: Hypothyroidism Past History Medical History Neurological: NONE EENT: NONE Cardiovascular: hyperlipidemia Respiratory: NONE Gastrointestinal: NONE Hepatic: NONE Renal: NONE Musculoskeletal: NONE Psychiatric: anxiety, depression Endocrine: hypothyroidism Cancer(s): NONE 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 History of MRSA: No History of VRE: No History of CDIFF: No Isolation History: Standard Surgical History Surgical History: none Psychiatric Family/Social Hx Family History Psychiatric Illness: mother with anxiety, pt thinks she is "manic depressive", uncle with psych "issues" Substance Use: Patient denied family history of substance abuse or alcoholism Suicides: No completed suicides, however the mother reportedly attempted suicide multiple times Social History Living Situation: Lives with and 2 children (teenagers) Significant Relationships (family/friends): The patient does not review her as supportive Education: Patient is a high school graduate 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 - #1 Recognizing dangerous situations. - #2 Coping Skills. - #3 Basic information about quitting. Status of Tobacco Cessation Counseling: Not Applicable Cessation Med Status Not Applicable Alcohol Screening - ETOH screen POS if BAL >=80 or Audit-C>= M4/F3 Audit-C Score from Diag Assess: 1 Blood Alcohol Level: Laboratory Tests 01/17 0907 Toxicology Serum Alcohol (<10 MG/DL) < 10.0 Alcohol Use Screening Results: Neg per Audit C &/or BAL - If ETOH counseling indicated - the following topics are required. - #1 Express concern about the patient's - drinking at unhealthy levels, include informing - of national norms for moderate drinking: - men <= 14 drinks/week, max 4 drinks/occasion - women <= 7 drinks/week, max 3 drinks/occasion - #2 Providing feedback, including linking alcohol to - negative physical effects (liver injury, hypertension) - negative emotional effects (relationship problems and - depression) - negative occupational consequences (reduced work - performance) - #3 Advising the patient to abstain from alcohol or - to drink below national norms for moderate drinking - (as listed above). Status of ETOH Use Counseling: N/A B/C NO ETOH Use Metabolic Screening - Screen if on a Neuroleptic Medication - Metabolic screening should include: - Blood Pressure, BMI, Glucose or Hgb A1c, & a - Lipid profile from within the past 365 days. Metabolic Screening ([X]) Not Applicable, patient not on a neuroleptic. Exam and Plan Mental Status Examination Ambulation Status: The patient was steady in her gait Appearance: Unremarkable appearance Attitude towards examiner: She was irritable and demanding, she insisted that she does not belong here and she wants to leave. Psychomotor activity: Increased psychomotor activity Behavior: No bizarre behaviors Quality of speech: Talkative with mild pressure Affect: Irritable/angry Mood: Depressed frustrated and irritable Suicidal Ideation: Denied suicidal ideation today but looks like she was making references to suicide yesterday on social media and text to [id number] and friends Homicidal Ideation: Denied homicidal ideation Hallucinations: She denied experiencing hallucinations Paranoid/Delusional Material: She denied feeling paranoid, there were no delusions during the interview Difficulties with thought organization: Patient was coherent, there were no loose associations and no significant thought disorder Insight: Poor insight Judgment: Poor judgment Orientation: Alert and oriented to place and person she missed the time by one day which is understandable given the circumstances Cognition: intact Memory Function: no deficits Estimate of intellectual functioning: average Assets/Strengths Patient Identified Assets/Strengths: The patient is intelligent and resourceful Impression/Plan Impression and Plan: 52-year-old white female who was admitted to the inpatient psychiatric unit after posting something on social media that suggested that she was thinking about suicide by overdose, and also texting her [id number] and friends messages ending with "goodbye" - Include all active medical diagnosis that require tx DSM 5 Diagnosis(es): By History: Unspecified Bipolar Disorder CYNTHIA; F13.20 Sedative Use D/O, severe; F12.10 - Cannabis Use D/O, mild. Hypothyroid - Initial Tx Plan for Active Psych & Medical Conditions Treatment Plan: Inpatient psychiatric care with safety checks every 15 minutes Biopsychosocial assessment, collateral information, and aftercare planning Discontinue Zoloft as the patient indicated that she has no intention of taking it Discontinue lamotrigine as the patient indicated that she has no intention of taking it Discontinue the CIWA protocol Change as needed doses of Klonopin to 1 mg every 4 hours as needed for anxiety, agitation, or insomnia The patient will be reevaluated tomorrow - Factors that would help patient function - in a less restrictive setting. Factors: The patient would be discharge if she continues to denying suicidal ideation for 2 consecutive days, and once there is solid discharge plan
--- NOTE | 2018-01-18 09:14 | SOCIAL WORKER PROG NOTE PSYCH ---
Social Work Progress Note Progress Note Tayla was having a difficult time this morning around being here. She asked to speak with me immediately this morning when she saw me. She reported that she had been having trouble with insomnia for the past 2 months. She said she took 2 Xanax at home and went to sleep. Prior to that she apparently had texted her Grandmother and her massage therapist a disturbing text. She initially told me "I was just looking for their support." I asked what she said in the text message? She said she was looking for someone to listen to her and if they can' t she may as well . She was upset that they called the ambulance and police who then showed up at her door and disrupted her sleep. She is angry at her for allowing them in her home. She kept stating "I am fine." "I don't belong here." She is having a difficult time understanding how her text could alarm someone. She said "I was just looking for someone to come over and give me a hug." I told her then she needs to ask for what she needs instead of saying what she did. She said she wanted to apologize for saying that, but hasn 't gotten the chance because she is here. She continued to perseverate on the fact that she is here and that she doesn't belong here. I told her that she needs to let us do our job in reviewing everything, talking to IOP, and speaking to her . She needed an explanation as to why I would want to have her in. I told her that her needs to let us know what has been going on at home and if there are any concerns. I asked how things are between her and her ? She reports that things are okay. I asked if they are still working on the plan to move out of state. She said that was still the goal, but understands that it won't happen tomorrow. Spoke with Mr. Collazo. He shared that he had called the police and ambulance on Tayla, but someone else did as well and he doesn't know who. He shared his concerns about her presentation. He regrets having Xanax in the house and stated he should have had it locked up or had gotten rid of it. He said he uses it occasionally. He wasn't sure if he should visit Tayla roberts or not. He said she has been calling him non-stop about getting her out. I advised against visiting if he thought it would cause her to feel upset when he left. He is able to come in at 2pm tomorrow for a meeting. Talked to Lexis Vences (IOP coordinator) she was supposed to have a family meeting this week with Tayla and her . Talked about her possibly being part of this meeting tomorrow so that everyone is on the same page.
[2018-01-18 12:30] VITALS: BP 124/96
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
[2018-01-18 19:46] VITALS: BP 135/85
[2018-01-19 08:07] VITALS: BP 122/76
--- NOTE | 2018-01-19 09:01 | CP SOUTH PROGRESS NOTE PSYCH ---
Psych (Inpt) Progress Note Progress Note The treatment team discussed the patient's progress, treatment plan, and aftercare plans. The treatment team included: HOSE FINISHER, nursing staff, therapy staff , and psychiatrist. Vital Signs Date Time Temp Pulse B/P B/P Pulse O2 FiO2 01/19 1150 96 128/94 01/19 0807 99.5 100 122/76 01/18 1946 98.6 98 135/85 I participated in some of the family meeting that took place between the patient and her this afternoon. Team members were present: Fiona Roldan, ROSETTA and Lexis Vences LCSW Mental Status Examination The patient is somewhat pressured, irritable, demanding /between hypomanic and manic steady gait, wants discharge right now she was offered Probable Cause Hearing, she declined She insisted that she does not belong here and she wants to leave. Tayla showed increased psychomotor activity, irritable/angry, frustrated but denied suicidal ideation today. She denied homicidal ideation, denied experiencing hallucinations, denied feeling paranoid, There were no delusions during the interview and she appears coherent (at least on the surface), Although there were no loose associations and no severe thought disorder, she was perseverative and unable to process any information beyond demanding discharge Poor insight, Poor judgment Alert and oriented to place and person Assessment: 52-year-old white female who was admitted to the inpatient psychiatric unit after posting something on social media that suggested that she was thinking about suicide by overdose, and also texting her [id number] and friends messages ending with "goodbye" Diagnoses (Update): Unspecified Bipolar Disorder CYNTHIA Sedative Use D/O, severe Cannabis Use D/O, mild. Other Specified Personality Disorder (mixed traits) Treatment Plan Update: Refused to consider [place] Refused to consider or take any medication but her Synthroid Change as needed doses of Klonopin to 2 mg at bedtime for insomnia Increase Gabapentin to 900 mg TID CYNTHIA; F13.20 Sedative Use D/O, severe; F12.10 - Cannabis Use D/O, mild. Hypothyroid Treatment Plan: Inpatient psychiatric care with safety checks every 15 minutes Biopsychosocial assessment, collateral information, and aftercare planning Discontinue Zoloft as the patient indicated that she has no intention of taking it Discontinue lamotrigine as the patient indicated that she has no intention of taking it Discontinue the CIWA protocol Change as needed doses of Klonopin to 1 mg every 4 hours as needed for anxiety, agitation, or insomnia The patient will be reevaluated tomorrow Cannabis Use D/O, mild. Hypothyroid Treatment Plan: Inpatient psychiatric care with safety checks every 15 minutes Biopsychosocial assessment, collateral information, and aftercare planning Discontinue Zoloft as the patient indicated that she has no intention of taking it Discontinue lamotrigine as the patient indicated that she has no intention of taking it Discontinue the CIWA protocol Change as needed doses of Klonopin to 1 mg every 4 hours as needed for anxiety, agitation, or insomnia The patient will be reevaluated tomorrow
[2018-01-19 11:50] VITALS: BP 128/94
[2018-01-19 16:07] VITALS: BP 117/85
--- NOTE | 2018-01-19 16:26 | SOCIAL WORKER PROG NOTE PSYCH ---
See Addendum Social Work Progress Note Progress Note Tayla was in bed and isolative, not attending groups or out in the milieu. Tayla's called about a half hour before the family meeting. He seemed to be very anxious over the meeting and what was going to happen. He said Tayla has been calling him telling him to say positive things to help her get out and go home. He doesn't feel she is ready to go home, but doesn't feel comfortable in telling her that. He feels she needs an ally right now. He shared that he was starting to go through a break down as well and is not dealing well with everything going on with Tayla. He asked if he could talk to someone. I told him I could give him a list of therapists. He is afraid of how Tayla will respond in the meeting if she hears she is not going home. I told him that was not her or his decision and it was our decision. Family meeting happened at 2pm with Tayla, Mr. Narvaez, Dr. Weber, and Lexis Vences (IOP Coordinator). Tayla presented initially with a smile. She talked about how her insomnia was so bad she only used the Xanax to get some sleep and that she had finally fell asleep. She attributed her sadness/ depression that she mentioned having not having sleep. She was upset over the fact that the police/ ambulance woke her up from a peaceful sleep. She continued to minimize the fact that she sent messages to people on social media and by text. We talked again about how the word she chose to use caused people to react the way they did as they wanted to ensure her safety. She was reminded to ask for what she needs instead of causing people to think she is going to kill herself. Dr. Weber talked with her about adding an antidepressant. She seemed ambivalent about it, stating she would like to try things out by just using other coping skills. After more discussion about how adding medication would help her increase her chances to be more successful, she seemed open to trying something. She was informed that she would not be leaving today. She immediately got upset and her presentation changed after that. At that point that was just about all she could focus on. I told her that we would like to see her active on the unit and not isolative in bed. Encouraged her to show others she is ready to leave the unit. She kept wanting to argue that keeping her here will make her worse. She wasn't listening to anything I had to say after a certain point. I told her she could file for a probable cause hearing. I explained what that was. She didn't seem interested in pursuing the court option. She feels that being here is punitive for her and she doesn't deserve it. She got angry, looking for her to save her. I explained again that her doesn't have power over that decision. She got angry and stormed out of the conference room. Her stated "that is not my ." He said she is looking more and more like her Mother. He reports that Tayla's Mother has an undiagnosed Bipolar D/O and has attempted to kill herself before. Mr. Narvaez is looking to be supportive, but feels helpless and does't know how to help.
[2018-01-19 19:24] VITALS: BP 135/80
[2018-01-20 07:35] VITALS: BP 103/73
[2018-01-20 12:21] VITALS: BP 115/93
--- NOTE | 2018-01-20 12:24 | CP SOUTH PROGRESS NOTE PSYCH ---
Psych (Inpt) Progress Note Progress Note The treatment team discussed the patient's progress, treatment plan, and aftercare plans. The treatment team included: MULTICUT LINE OPERATOR, RNs, therapy staff, and psychiatrist. Mental Status Examination Tayla was alert & oriented to time, place, and person. She had a singular focus on discharge "today." She remains pressured but less irritable and less angry. She remains demanding and inability (or impaired ability) to reflect on the reasons for which she was admitted. Continues to blame everything on "not sleeping for 2-3 weeks", "last night I slep, why can't I go home." Eli did not seem sedated, her gait was steady, she was not slurred. I again offered Probable Cause Hearing, she declined Tayla showed increased psychomotor activity, frustrated but denied suicidal ideation today. She denied homicidal ideation, denied experiencing hallucinations, and denied feeling paranoid, There were no delusions during the interview and she appears coherent. there were no loose associations and no severe thought disorder, she was perseverative about discharge Minimal insight Assessment: 52-year-old White female who was admitted to the inpatient psychiatric unit after posting something on social media that suggested that she was thinking about suicide by overdose, and also texting her [id number] and friends messages ending with "goodbye" Diagnoses (Updated 01/20/2018): Unspecified Bipolar Disorder CYNTHIA Sedative Hypnotic Use Disorder, mild Cannabis Use Disorder, mild. Other Specified Personality Disorder (mixed traits: some Borderline traits, Obsessive-Compulsive traits) Treatment Plan Update: I prescribed [place] 150 mg TID and advised her to take it Reduce PRN Klonopin to 1.5 mg at bedtime for insomnia Continue Gabapentin 900 mg TID D/C Trazodone
--- NOTE | 2018-01-20 12:54 | SOCIAL WORKER PROG NOTE PSYCH ---
See Addendum Social Work Progress Note Progress Note Mr. Narvaez called to share that Tayla called him to say she was discharging tomorrow. He seemed concerned and asked if she was ready? I told him I hadn't seen her today. I shared that the doctor is prescribing [place] and hopefully that will help her stabilize. Offered another family meeting for tomorrow at 12 :30 to see how she is doing. He thought that was a good plan. Tayla was tearful walking to her room after getting off the phone. I approached her and asked if everything was okay? She said she was crying because her ear hurt and was bleeding after accupuncture. She told me that the doctor informed her she is leaving tomorrow. She said she was put on [place] which she wasn't too happy, because she doesn't know alot about the medication. I offered to have something printed out for her. I let her know that [place] would most likely help stabilize her mood. She continues to express her anger over being here and people calling the police on her when she was home sleeping. She continues to argue the fact that she only expressed words and that it was the reaction of others that was wrong not her behavior or choice of words. Only towards the end of the conversation she said she used the wrong choice of words and planned to talk to the people involved to tell them what she needed at that time. She continues to say she only wanted support and someone to come over. I reiterated that safety comes first and when people think she is unsafe they may contact emergency services. I asked if she was still angry with her ? She said she was. I asked why? She said she is upset at him for letting the police in. I told her that her feels that she is angry with him and it would be beneficial to have a family meeting tomorrow. I told her I'd like to do this at 12:30pm prior to her 1:15pm intake appt. She agreed to the meeting.
[2018-01-20 15:49] VITALS: BP 109/60
[2018-01-20 20:28] VITALS: BP 117/78
[2018-01-21 07:50] VITALS: BP 116/75
--- NOTE | 2018-01-21 08:19 | Patient Discharge Instructions ---
Psych Discharge Inst General Discharge Information Reason for Admission: posting what seemed a suicide note on social media Psy Discharge Primary Diag+ unspecified depressive DO Summary Tests/Major Procedures Lab BUN 9 mg/dL 01/17/18 09 Creatinine 0.6 mg/dL 01/17/18 0907 Estimated GFR > 60 ml/min 01/17/18 09 Studies Pending at DC: none Patient Instructions Contact Information Your Psychiatrist on [facility] was Gus IQBAL,Nils * If you are experiencing an emergency related to this hospitalization, please call [phone] to contact the treating psychiatrist or the psychiatrist-on- call. * To Request a copy of your medical records, please contact the Medical Records Department at [phone]. * To request results of studies pending at the time of discharge, please call [phone]. * Continue your Medications until directed to stop by your Healthcare provider. General Medication Information Please continue to take your new medications and your continued home medications , unless otherwise indicated on your discharge medication list, or unless directed by your MD or HEELER to stop them. Special Instructions Diet Regular Activity Normal Other Inst/Recommendations blood work next week - Tobacco Use Treatment Offered Post DC Medications Offered: Not Applicable Post DC Tobacco Treatment Plan: Not Applicable - EtOH/Drug Use D/O Treatment Offered Post DC Medications Offered: NA-No EtOH/Drug Use D/O Post DC EtOH/SubAbuse [place] Plan: NA-No EtOH/Drug Use D/O Metabolic Screening ([X]) Not Applicable, patient not on a neuroleptic. Advance Directives Does the Patient have Medical Advance Directives No/Refused further info Does Pt have Psychiatric Advance Directives? No/Refused further info Does Patient have a Designated Surrogate Decision Maker: No Information About Psychiatric Advance Directives Provided? Refused Discharge Plan Post Hospital Treatment Plan: IOP
[2018-01-21] MEDS ORDERED: LITHIUM CARBON300 M6 PO (08:24)
[2018-01-21] MEDS ORDERED: NEURONTIN800 M2 PO (08:25)
--- NOTE | 2018-01-21 08:39 | CP SOUTH PROGRESS NOTE PSYCH ---
Psych (Inpt) Progress Note Progress Note Vital Signs Date Time Temp Pulse B/P 01/21 0750 97.2 83 116/75 The treatment team discussed the patient's progress, treatment plan, and aftercare plans. The treatment team included: ROOF PANEL HANGER, RNs, Therapy staff, and psychiatrist. Mental Status Examination Tayla seemed to be in good spirits this morning. She reported that she is excited and looking forward to going home ... "I miss my daughters." Tayla was alert & oriented to time, place, and person. She said she tolerated Bertram well, she was not pressured and her tone was much better today (not angry or irritable/ not loud or luisito) Tayla did not seem sedated, her gait was steady, she was not slurred. Tayla denied suicidal ideation today. She denied homicidal ideation, denied experiencing hallucinations, and denied feeling paranoid. There were no delusions during the interview and she was coherent. There were no loose associations and no severe thought disorder, she was perseverative/ obsessive. Assessment: 52-year-old White Female who was admitted to the inpatient psychiatric unit @ on 01/17/2018 after posting something on social media that suggested that she was thinking about suicide by overdose, and also texting her mother-in- law and friends messages ending with "goodbye" She was focused on discharge from the moment she arrived on the unit and showed very little insight. Since then she seemed to be less irritable, less pressured, less angry and started (just yesterday) Bertram. She continues to have hypomanic signs but is no longer a risk to self Diagnoses (Updated 01/20/2018): Unspecified Bipolar Disorder CYNTHIA Other Specified Personality Disorder (mixed traits: some Borderline traits, Obsessive-Compulsive traits) Treatment Plan Update: D/C to IOP Intake then Home
--- NOTE | 2018-01-21 10:16 | DISCHARGE SUMMARY REPORT-PSYCH ---
Visit Information Visit Dates/Diagnosis' Admission Date: 01/17/18 Discharge Date: 01/21/18 Reason for Admission: posting what seemed a suicide note on social media Psy Discharge Primary Diag: unspecified depressive DO Hospital Course Significant Lab Findings: Lab BUN 9 mg/dL 01/17/18906 BUN/Creatinine Ratio 15.0 % 01/17/18906 Creatinine 0.6 mg/dL 01/17/18906 Estimated GFR > 60 ml/min 01/17/18 09 Glucose 93 mg/dL 01/17/18906 Course Complications: Patient did not have any complications while she was on the inpatient psychiatric unit Consultations: The patient had a history and physical examination by the chef concierge when she was on the inpatient psychiatric unit. Please refer to the patient's electronic health record for the details of the H&P. 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 Hypothyroid Treatment Plan: Inpatient psychiatric care with safety checks every 15 minutes Biopsychosocial assessment, collateral information, and aftercare planning Discontinue Zoloft as the patient indicated that she has no intention of taking it Discontinue lamotrigine as the patient indicated that she has no intention of taking it Discontinue the CIWA protocol Change as needed doses of Klonopin to 1 mg every 4 hours as needed for anxiety, agitation, or insomnia 01/19/2018: Treatment Plan Update: Refused to consider [place] Refused to consider or take any medication but her Synthroid Change as needed doses of Klonopin to 2 mg at bedtime for insomnia Increase Gabapentin to 900 mg TID 02/20/2018: Treatment Plan Update: I prescribed [place] 150 mg TID and advised her to take it Reduce PRN Klonopin to 1.5 mg at bedtime for insomnia Continue Gabapentin 900 mg TID D/C Trazodone 01/21/2018: Mental Status Examination: Tayla seemed to be in good spirits this morning. She reported that she is excited and looking forward to going home ... "I miss my daughters." Tayla was alert & oriented to time, place, and person. She said she tolerated [place] well, she was not pressured and her tone was much better today (not angry or irritable/ not loud or luisito) Tayla did not seem sedated, her gait was steady, she was not slurred. Tayla denied suicidal ideation today. She denied homicidal ideation, denied experiencing hallucinations, and denied feeling paranoid. There were no delusions during the interview and she was coherent. There were no loose associations and no severe thought disorder, she was perseverative/obsessive. Assessment: 52-year-old White Female who was admitted to the inpatient psychiatric unit @ on 01/17/2018 after posting something on social media that suggested that she was thinking about suicide by overdose, and also texting her [id number] and friends messages ending with "goodbye" She was focused on discharge from the moment she arrived on the unit and showed very little insight. Since then she seemed to be less irritable, less pressured, less angry and started (just yesterday) [place]. She continues to have hypomanic signs but is no longer a risk to self. Diagnoses (Updated 01/20/2018): Unspecified Bipolar Disorder CYNTHIA Other Specified Personality Disorder (mixed traits: some Borderline traits, Obsessive-Compulsive traits) Treatment Plan Update: D/C to IOP Intake then Home Discharge HBIPS - Tobacco Use Treatment Offered Post DC Medications Offered: Not Applicable Post DC Tobacco Treatment Plan: Not Applicable - EtOH/Drug Use D/O Treatment Offered Post DC Medications Offered: NA-No EtOH/Drug Use D/O Post DC EtOH/SubAbuse [place] Plan: NA-No EtOH/Drug Use D/O Metabolic Screening - Screen if on a Neuroleptic Medication - Metabolic screening should include: - Blood Pressure, BMI, Glucose or Hgb A1c, & a - Lipid profile from within the past 365 days. Metabolic Screening ([X]) Not Applicable, patient not on a neuroleptic. Discharge Instructions General Discharge Information Multiple Neuroleptics: ([X]) Not Applicable Discharge Diet Regular Discharge Activity Normal DC Disposition: Home Referrals Ordered Referrals Provider Referral 01/21/18 For Groups: [[facility]] [facility] Intake on 01/21/18 1:15pm [address] [place] [address] Prescriptions Stop taking the following medications: Sertraline HCl (Sertraline HCl) 25 MG TABLET ORAL DAILY @8 AM Qty = 42 Trazodone HCl (Trazodone HCl) 50 MG TABLET ORAL DAILY Qty = 14 Clonazepam (Klonopin) 1 MG TABLET ORAL Every night as needed for ANXIETY Qty = 1 Continue taking these medications: Levothyroxine Sodium (Synthroid) 88 MCG TABLET 88 Microgram ORAL DAILY Comments: Last Taken:01/21/18 Time:0630 Start taking the following new medications: [place] Carbonate ([place] Carbonate ER) 300 MG TABLET.ER 1 Tablet ORAL TWICE DAILY Qty = 60 No Refills Comments: Last Taken:TO START THIS DOSE AT HOME Time:AT 0800 RECEIVED LITHIUM 150MG 01/21/18 Gabapentin (Neurontin) 800 MG TABLET 1 Tablet ORAL SEE INSTRUCTIONS Qty = 60 No Refills Instructions: 1 tablet in AM, 1 tab in afternoon and 2 tablets at bedtime Comments: Last Taken:01/21/18 Time:0800 Other Inst/Recommendations blood work next week Studies Pending at Discharge none Copies To: -[facility]
[2018-01-21 12:21] VITALS: BP 116/68
--- NOTE | 2018-01-21 13:18 | SOCIAL WORKER PROG NOTE PSYCH ---
Social Work Progress Note Progress Note Tayla's came in for a family meeting at 12:30pm today. Tayla was in a much better mood today. She was smiling and not feeling angry today. She said she really was feeling so much better and that being here and trying the medicine has helped. Talked about her really communicating to her clinical providers when she isn't happy with her medicine and needs a change, vs. stopping them all together. Talked about sharing how she is doing with sleep and anxiety before a crisis happens. She asked for a list of individual therapists that she can also pursue while she is in [facility]. Her asked her about marriage counseling? She said she would like to do that eventually, but not right now. He is seeking out his own therapist. I advised not to go to the same person. I asked Tayla if she was still feeling angry with her for letting the police in? She said she wasn't anymore and understood why he did. Her and her talked about doing puzzles and playing cards when they get home. Tayla really appeared to be in a good place. Mr. Narvaez also seemed to feel she was feeling genuinely better. Tayla went to her IOP intake at 1:15pm with her .
--- NOTE | 2018-01-21 13:29 | SOCIAL WORKER PROG NOTE PSYCH ---
Social Work Progress Note Faxed Referral(s) Referred To: [facility] Transition of Care Documents sent: Health Summary Faxed to: [facility] Fax #: [phone] Faxed by: Fiona Roldan Date faxed: 01/21/18 Time Faxed: [phone]
== END 2018-01-21 13:15 | DRG 881 ==
LOC: ERH 08:56 → CP SOUTH 17:11 → ERHI 17:11 → ENTRNSPT 17:25 → EDTRNSPTSTS 17:28 → CP SOUTH 17:43 → CMPTRNSPT 17:47 → CP SOUTH 01-18 10:22
PROVIDERS: Emergency Medicine
DX: F32.9 Major depressive disorder, single episode, unspecified (principal)
CPT/HCPCS: 80307; 81001; G0463; G0480; J0515; J1630